=== PATIENT | male | born 1950 | race Caucasian/White ===

== ENCOUNTER 2018-08-26 12:51 | Inpatient (IN) | payer MEDICARE, SELFPAY ==
[2018-08-26] VITALS (8 sets, daily range): BP systolic 108–142; BP diastolic 76–103; PULSE 85–102; RESP 16–18; TEMP 36.6–36.7; O2SAT 92–99; BMI 22.6; BMI 26.2; BMI 26.3
--- NOTE | 2018-08-26 14:21 | RAD_ITS ---
STUDY: X-RAY CHEST REASON FOR EXAM: Male, 67 years old. Cough. Lower extremity swelling. TECHNIQUE: PA and lateral views of the chest. COMPARISON: Comparison is made with prior study dated July 11, 2011. FINDINGS: EKG electrodes are seen. Hyperinflation. Atelectasis and/or infiltrate at the left lung base with a small left pleural effusion. Mild increased markings at the right lung base and blunting of the right costophrenic angle. I suspect a mild degree of vascular congestion. There is borderline cardiomegaly. Normal mediastinum and cadence. Normal visualized pulmonary arteries. Normal visualized aortic arch and descending thoracic aorta. There are diffuse degenerative changes of the visualized thoracic spine. Normal visualized ribs, clavicles, and shoulders. There is no demonstrated abnormality of the visualized soft tissue structures of the upper abdomen. RAD/Chest PA and Lateral IMPRESSION: Findings suggestive of mild degree of bibasilar infiltrates and/or atelectasis with blunting of both cost phrenic angles superimposed on mild degree of vascular congestion. Electronically Signed: Eyad Gonzalez, at 15:05 EST , Service support ,
--- NOTE | 2018-08-26 14:21 | EKG12_ITS ---
Test Reason : EDEMA Blood Pressure : / mmHG Vent. Rate : 089 BPM Atrial Rate : 089 BPM P-R Int : 136 ms QRS Dur : 090 ms QT Int : 358 ms P-R-T Axes : 069 139 037 degrees QTc Int : 435 ms Normal sinus rhythm Possible Left atrial enlargement Right axis deviation Right ventricular hypertrophy Septal infarct , age undetermined Abnormal ECG Confirmed by LEE BROOKE, BENTLEY ([id number]), marketing editor ALEXANDRO TUTTLE ([id number]) on 08/28/2018 3:51:31 PM Referred By: Aleksander Snyder Confirmed By:BENTLEY HOWARD MD
[2018-08-26 14:52] LABS: Absolute Lymphocyte Count 0.32 X10^3/ul (0.83-4.51); Absolute Neutrophil Count 4.7 X10^3/uL (2.0-7.7); Basophil# 0.01 X10^3/uL; Basophil% 0.2 % (0-1); Eosinophil# 0.01 X10^3/uL; Eosinophils% 0.2 % (0-5); Lymphocyte # 0.32 X10^3/ul (4.0); Lymphocyte % 5.8 % (19-41); Mean Corp Hgb Conc 32.1 g/gl (32-36); Mean Corpuscular Hgb 34.9 pg (27.0-32.0); Mean Corpuscular Volume 108.8 fL (80-94); Mean Platelet Vol. 12.1 fl (6.2-12.0); Monocyte% 9.1 % (0-10); Neutrophil # 4.66 X10^3/uL (2.7-7.7); Neutrophil % 84.5 % (47-70); Platelet Count 105 K/mm3 (150-450); RBC Distribution Width CV 15.6 % (11.6-14.6); RBC Distribution Width SD 62.2 fl (35.1-43.9); Red Blood Count 5.56 M/mm3 (4.6-6.2); White Blood Count 5.5 K/mm3 (4.4-11.0)
[2018-08-26 14:59] LABS: Differential Indicated SCAN CRITERIA MET; Hematocrit 60.5 % (40-54); POSITIVE COUNT NO; POSITIVE DIFFERENTIAL YES; POSITIVE MORPHOLOGY NO
[2018-08-26 15:00] LABS: Hemoglobin 19.4 g/dl (13.0-16.5)
[2018-08-26 15:01] LABS: ALB/GLOB Ratio 0.9 RATIO (0.9-2.4); AST(SGOT) 24 U/L (15-37); Alanine Aminotransfer ALT/SGPT 28 U/L (16-61); Alkaline Phosphatase 86 U/L (45-117); Anion Gap 7 (5-15); BUN 27 mg/dL (7-18); BUN/Creat Ratio 21.3 RATIO (10-20); Calcium,Total 8.2 mg/dL (8.5-10.1); Chloride 95 mmol/L (98-107); Creatinine, Serum 1.27 mg/dL (0.70-1.30); EST Glomerular Filtration Rate 60 mL/min (>60); Est Glom Filt Rate - Afr Amer 73 mL/min (>60); Estimated Creatinine Clearance 58.66 ml/min; Globulin 3.5 g/dL (2.2-4.2); Glucose 80 mg/dL (74-106); Lipase 38 U/L (73-393); Potassium 5.1 mmol/L (3.5-5.1); Protein, Total 6.5 g/dL (6.4-8.2); Sodium Level 130 mmol/L (136-145)
[2018-08-26 15:15] LABS: BNP,B-Type NATRIURETIC PEPTIDE 1335.2 pg/mL (0-100); Differential Comment SCANNED
--- NOTE | 2018-08-26 15:15 | CT_ITS ---
STUDY: CTA CHEST REASON FOR EXAM: Male, 67 years old. Bilateral lower extremity edema. History of prostate and bladder cancer. RADIATION DOSAGE (If Supplied By Facility): CTDIvol = ( 9.8 ) mGy, DLP = ( 340 855 ) mGycm TECHNIQUE: The examination was performed with the intravenous administration of Isovue 370 75ML IV. Post-processing of the angiographic images was performed, with multiplanar reformation and 3D reconstruction. Individualized dose optimization techniques were used for this CT. COMPARISON: None. FINDINGS: Normal enhancement of the main pulmonary artery and right and left pulmonary arteries. Normal enhancement of the bilateral peripheral pulmonary arteries. There is no demonstrated pulmonary embolism. Normal thoracic aorta and visualized great vessels. There is no demonstrated aortic dissection. There are calcifications of the coronary arteries. There is borderline cardiac cardiomegaly. Normal mediastinum. Normal hilar regions. Normal visualized trachea and bronchi. Hyperinflation. Emphysematous changes worse in the upper lobes. Bilateral pleural effusions greater on the left side. Bibasilar atelectasis. Increased markings in the posterior aspect of the lingular segment of the left upper lobe suggestive of scarring. Increased markings at both lung bases suggestive of basilar scarring. Normal chest wall structures. There are degenerative changes of thoracic spine. There is a 2.2 cm x 1.4 cm cyst in the left lobe of the liver. Small amount of perihepatic and perisplenic fluid. CT/CTA Chest W/WO Contrast IMPRESSION: Bilateral pleural effusions left greater than right with underlying bibasilar atelectasis and scarring. Findings suggestive scarring in the lingular segment of the left upper lobe. Small amount of ascites. Small cyst in the left lobe of the liver. Electronically Signed: Eyad Gonzalez, at 16:01 EST , Service support ,
[2018-08-26 15:35] LABS: Lactic Acid 1.5 mmol/L (0.4-2.0)
[2018-08-26 15:36] LABS: International Normalized Ratio 1.2; Partial Thromboplast Time 25.8 Seconds (24.1-36.2); Prothrombin Time (Protime)PT. 15.1 SECONDS (11.7-14.9)
--- NOTE | 2018-08-26 16:15 | ED.VISSUMM ---
- ER Visit Summary Date of Service: 08/26/18 Chief Complaint: Swelling History of Present Illness: The patient is a 67 M who states that about a week and a half ago he began to develop swelling in the lower extremities. He states that the swelling has now gone up his legs has included his scrotum and now his abdomen feels swollen. He notes a moist cough and some shortness of breath. He states that his left face seems swollen yesterday but has improved. Patient has a urostomy due to prior bladder cancer. He notes good urinary output. He said used to smoke 2 packs a day up until 1-1/2 weeks ago when he dropped down to a few cigarettes a day because he thought perhaps the smoking was causing his swelling. He rolls his own cigarettes. He denies any hemoptysis. He denies any chest pain. No known cardiac history. Physical Examination: Afebrile slight tachycardic at 102. 88-89% on room air 93% on 2 L. Gen: Well-nourished well-developed Head: Normocephalic atraumatic Eyes: Perrl EOMI ENT: TMs clear no rhinorrhea moist mucous membranes Neck: Supple no lymphadenopathy no JVD nontender CVS: Regular rate tachycardic rhythm no murmurs normal S1-S2 Respiratory: No distress decreased breath sounds at the bases with rales. Moist cough. Abdomen: Soft nontender nondistended normal bowel sounds no masses there is small ascites Back: Nontender Extremity: Nontender 2-3+ pitting symmetric edema. Skin: Normal color no rash Neuro: alert orientated ?3 CN II-XII intact normal strength sensation reflexes gait cerebellar Psych: Normal affect normal mood Test Results: Normal sinus rhythm on the EKG at a rate of 89. Chest x-ray shows no acute findings other than a probable small pleural effusion. CTA demonstrates moderate size pleural effusions no pulmonary embolism. No obvious lung mass. No evidence of superior vena cava syndrome. Troponin is negative. Beta nitric peptide is 1333. Total protein 6.5. Hemoglobin 19.4 with a elevated MCV of about 108. Emergency Department Course and Treatment: Patient received Lasix. He will need admission into the hospital. We talked about the need for echocardiogram and further evaluation.. Impression: 1. Anasarca 2. Bilateral pleural effusions 3. Hypoxemia 4. CHF This note was generated with Dragon dictation software. It may contain incorrect words, spelling, and punctuation that were not noted in review of the chart prior to signing ED Disposition - Plan for ED Patient: Referrals: Romain Manzo III, MD [Primary Care Provider] -
--- NOTE | 2018-08-26 16:29 | HP.PCM_ITS ---
Problem List (1) CHF (congestive heart failure) Status: Acute (2) Polycythemia Status: Chronic (3) Tobacco dependence Status: Chronic (4) Bladder cancer Status: Chronic (5) History of urostomy Status: Chronic History of Present Illness Date of Admission: 08/26/18 Chief Complaint: Bilateral lower extremity swelling The patient is a 67 year old M past medical history significant for tobacco dependence, history of bladder CA status post resection and subsequent creation of a urostomy bag who presents with swelling involving both lower extremities. Patient symptoms started about 2 weeks prior to his admission he has since noticed increasing swelling involving both lower extremities. Patient in addition did notice increasing fatigue with minimal activity. He also did complain of some shortness of breath and wheezing. In view of the progressive nature of his symptoms he presented to the emergency department. PA of the chest obtained in the emergency department demonstrated Bilateral pleural effusions left greater than right with underlying bibasilar atelectasis and scarring. Findings suggestive scarring in the lingular segment of the left upper lobe. Small amount of ascites. Small cyst in the left lobe of the liver. An assessment of acute congestive heart failure made Lasix initiated and patient admitted to a monitored bed for further management Past Medical History Past Medical History (Chronic Problems): Chronic Problems Polycythemia (Chronic) Tobacco dependence (Chronic) Bladder cancer (Chronic) History of urostomy (Chronic) Allergies ciprofloxacin [From Cipro] Allergy (Verified 08/26/18 12:55) Rash Home Medications: Ambulatory Orders Medication Instructions Recorded NK 08/26/18 Smoking Status: Current every day smoker - *Family History Maternal History Items: Heart Disease Paternal History Items: Heart Disease Review of Systems Constitutional: Denies: Anorexia, Chills, Fever, Night Sweats, Weight Change HEENT: Denies: Head Aches, Sinus Congestion, Sinus Drainage Cardiovascular: Denies: Chest Pain, Orthopnea, Palpitations, Paroxysmal Noc. Dyspnea Respiratory: Reports: Cough, Shortness of Breath, Wheezing Gastrointestinal: Denies: Abdominal Pain, Hematemesis, Hematochezia, Nausea, Melena, Vomiting Genitourinary: Denies: Dysuria, Frequency, Hematuria, Urgency Musculoskeletal: Denies: Joint Pain, Joint Tenderness Skin: Denies: Rash Neurological: Denies: Focal weakness, Numbness, Tingling Psychiatric: Denies: Homicidal Ideations, Suicidal Ideations Hematologic/ Lymphatic: Denies: Easy Bruising, Easy Bleeding VTE Information - Inpt Only VTE Present on Admission: No VTE Mechan Device Prophylaxis: Knee High MIRTA Hose Patient Problems: Active and Suspected Problems CHF (congestive heart failure) (Acute) Objective: GENERAL: cooperative HEENT: Atraumatic; moist oral mucosa EYES; Anicteric, Normal Conjunctiva NECK; supple, normal thyroid, distended JVD. RESPIRATORY: Diminished to auscultation bilaterally, CARDIOVASCULAR: Regular S1 S2, no audible murmurs GI: soft, non-tender, normoactive bowel sounds, : No Renal angle tenderness; EXTREMITIES: 2+ bipedal edema, no clubbing, no cyanosis. MUSCULOSKELETAL: No Joint Tenderness; no muscle waisting NEURO: Awake; no lateralizing signs. SKIN: No Rash PSYCH; Normal affect - Physical Exam Vital Signs Temp Pulse Resp BP Pulse Ox 98 F 102 H 18 142/103 H 93 08/26/18 12:52 08/26/18 12:52 08/26/18 12:52 08/26/18 12:52 08/26/18 12:52 Oxygen Delivery Method Room Air Weight: 73.482 kg Body Mass Index (BMI) 22.6 Laboratory Tests Past 24 Hrs 08/26/18 08/26/18 08/26/18 14:20 14:20 14:20 WBC 5.5 RBC 5.56 Hgb 19.4 H* Hct 60.5 H MCV 108.8 H MCH 34.9 H MCHC 32.1 RDW 15.6 H RDW Differential 62.2 H Plt Count 105 L MPV 12.1 H Immature Gran % (Auto) 0.200 Neut % (Auto) 84.5 H Lymph % (Auto) 5.8 L [place] % (Auto) 9.1 Eos % (Auto) 0.2 Baso % (Auto) 0.2 Absolute Neuts (auto) 4.7 Absolute Lymphs (auto) 0.32 L Total Counted Not Reportable Differential Comment SCANNED PT INR APTT Sodium 130 L Potassium 5.1 Chloride 95 L Carbon Dioxide 28.0 Anion Gap 7 BUN 27 H Creatinine 1.27 Estim Creat Clear Calc 58.66 Est GFR (MDRD) Af Amer 73 Est GFR (MDRD) Non-Af 60 BUN/Creatinine Ratio 21.3 H Glucose 80 Lactic Acid Calcium 8.2 L Total Bilirubin 0.70 AST 24 ALT 28 Alkaline Phosphatase 86 Troponin I < 0.015 B-Natriuretic Peptide 1335.2 H Total Protein 6.5 Albumin 3.0 L Globulin 3.5 Albumin/Globulin Ratio 0.9 Lipase 38 L 08/26/18 08/26/18 15:01 15:20 WBC RBC Hgb Hct MCV MCH MCHC RDW RDW Differential Plt Count MPV Immature Gran % (Auto) Neut % (Auto) Lymph % (Auto) [place] % (Auto) Eos % (Auto) Baso % (Auto) Absolute Neuts (auto) Absolute Lymphs (auto) Total Counted Differential Comment PT 15.1 H INR 1.2 APTT 25.8 Sodium Potassium Chloride Carbon Dioxide Anion Gap BUN Creatinine Estim Creat Clear Calc Est GFR (MDRD) Af Amer Est GFR (MDRD) Non-Af BUN/Creatinine Ratio Glucose Lactic Acid 1.5 Calcium Total Bilirubin AST ALT Alkaline Phosphatase Troponin I B-Natriuretic Peptide Total Protein Albumin Globulin Albumin/Globulin Ratio Lipase Assessment/Plan All Active Problems CHF (congestive heart failure) (Acute) Patient is a 67-year-old gentleman presented with exertional dyspnea with bilateral lower extremity edema 1. Acute congestive heart failure (unspecified): Patient has been admitted to a monitored bed serial cardiac enzymes ordered as part of patient evaluation. Also did obtain 2D echo for EF assessment. Patient was placed on fluid restrict ion, strict input and output, low-sodium diet and daily weights monitoring 2. Bilateral pleural effusion secondary to above 3. Polycythemia do suspect polycythemia as a result of chronic tobacco use. An echo has been ordered with a view to assess patient and arterial pressures 4. History of bladder CA status post resection currently in remission patient had a subsequent urostomy created 5. Tobacco dependence counseled on cessation, offered nicotine patch for tobacco cravings 6. Frequent PVCs did request a magnesium level in addition to echo 7. Suspected COPD from prolonged tobacco use patient had some bronchospasm on admission placed on aerosol treatment 8. DVT prophylaxis SC Lovenox Code Visit Inpatient E&M: 44519 Init Hosp L3
[2018-08-26] MEDS: Furosemide 100 MG/10 ML Vial 60 MG IV (16:39)
--- NOTE | 2018-08-26 16:47 | CASEMGMT ---
RN CM Assessment Introduced role of RN CM to patient and two daughters at bedside. Patient is alert, oriented and able to participate in RN CM Assessment. Care providers, pharmacy, and demographics verified. Presentation: Admitted for CHF, CC: Swelling to bilt LE to scrotum, SOB. PCP: Dr Romain Manzo. Patient states he is in the process of changing PCP to Dr Leyva and cannot see him for 2 weeks but has not made appointment yet d/t needing to fill out paperwork. Specialists: None Preferred Pharmacy: None as patient has no Medication Benefit Coverage. States has used [facility] in past. CM did discuss Good Rx and other options CM can assist with if needing medications at DC. Both daughters state they could assist if needed. Insurance: Medicare A&B Prescription Benefit: No LNOK: Cookie Hilliard Living Arrangements: Lives alone in a mobile home with ramp. Independent with ambulation, using cane if needed, Independent with ADL's. Transportation: Patient drives sometimes. Cookie Velasquez to transport on DC. DME: Cane, Shower [employer]. no preference on DME Provider. HHC: Has had in past, cannot recall name. No preference on Agency. SNF: Denies past, no preference on Facility. DC PLAN: Home with no anticipated needs. CM to assist with any rx if prescribed at DC. [facility] Ernst
--- NOTE | 2018-08-26 17:24 | ECHOD_ITS ---
Reason For Study: CHF Procedure This was a 2D Doppler, Color Flow transthoracic echocardiogram. Exam performed portable in patient room. Left Ventricle Normal size and thickness. The estimated ejection fraction is 65 %. Stage 1 diastolic dysfunction. No regional wall motion abnormalities noted. Right Ventricle Severely dilated right ventricle. Moderately severe global right ventricular systolic dysfunction. Atria Normal left atrium. The right atrium is severely enlarged. Normal atrial septum. Mitral Valve The mitral valve is structurally normal. No prolapse or stenosis seen. Tricuspid Valve Normal tricuspid valve. Mild to moderate (1-2+) eccentric tricuspid valve insufficiency. Right ventricular systolic pressure estimated to be 65 mmHg. Severe pulmonary hypertension. Aortic Valve Normal aortic valve. Trisinus/trileaflet aortic valve. Pulmonic Valve Normal pulmonic valve. Great Vessels Normal aortic root. Normal arch. The inferior vena cava is dilated. No collapse of the inferior vena cava. Pericardium/Pleural No pericardial effusion. MMode/2D Measurements & Calculations LVIDd: 4.8 cm IVSd: 1.3 cm Ao root diam: 3.7 cm LVIDs: 2.8 cm LVPWd: 0.68 cm LA dimension: 3.0 cm RVDd: 5.4 cm FS: 42.3 % LAV(MOD-sp4): 30.7 ml LA A4 area: 14.7 cm2 RA A4 area: 32.0 cm2 Time Measurements MV dec time: 0.27 sec Doppler Measurements & Calculations MV E max alton: 59.0 cm/sec Lat Peak E' Alton: 11.9 cm/sec Med Peak E' Alton: 6.7 cm/sec MV A max alton: 96.2 cm/sec E/E' lat: 4.9 E/E' med: 8.9 MV E/A: 0.61 MV V2 max: 92.5 cm/sec MV P1/2t max alton: 69.2 cm/sec Ao V2 max: 129.4 cm/sec MV max P.4 mmHg MV P1/2t: 75.7 msec Ao max P.7 mmHg MV V2 mean: 53.4 cm/sec MV dec slope: 268.1 cm/sec2 Ao V2 mean: 81.0 cm/sec MV mean P.3 mmHg MVA(P1/2t): 2.9 cm2 Ao mean P.1 mmHg MV V2 VTI: 21.7 cm Ao V2 VTI: 20.2 cm LV V1 max: 101.8 cm/sec PA V2 max: 93.2 cm/sec TR max alton: 388.7 cm/sec LV V1 max P.2 mmHg TR max P.4 mmHg LV V1 mean P.7 mmHg LV V1 mean: 58.1 cm/sec LV V1 VTI: 19.0 cm Interpretation Summary The estimated ejection fraction is 65 %. Stage 1 diastolic dysfunction. Severely dilated right ventricle. Moderately severe global right ventricular systolic dysfunction. The right atrium is severely enlarged. Mild to moderate (1-2+) eccentric tricuspid valve insufficiency. Right ventricular systolic pressure estimated to be 65 mmHg. Severe pulmonary hypertension. Compared to echo report dated 06/29/2011, LV function has remained alvarado same, but RV is now severely enlarged with severe pulmonary HTN. Ordering Physician: Aleksander Snyder Referring Physician: Aleksander Snyder Performed By: Anthony Kaur RCS
[2018-08-26 18:38] LABS: Magnesium 1.9 mg/dL (1.6-2.6); Thyroid Stim Hormone (TSH) 2.45 uIU/mL (0.358-3.74)
[2018-08-26] MEDS: Furosemide 40 MG/4 ML Vial IV (21:34)
[2018-08-27] VITALS (19 sets, daily range): BP systolic 96–112; BP diastolic 50–73; PULSE 80–92; RESP 16–21; TEMP 36.6–36.7; O2SAT 88–96
[2018-08-27] MEDS: Furosemide 40 MG/4 ML Vial IV ×3 (06:07→21:53)
[2018-08-27] MEDS: 0.9% NaCl Peripheral Flush Adult/Peds IV ×5 (06:07→21:53)
[2018-08-27 06:54] LABS: Hematocrit 55.3 % (40-54); Mean Corp Hgb Conc 32.7 g/gl (32-36); Mean Corpuscular Hgb 35.2 pg (27.0-32.0); Mean Corpuscular Volume 107.6 fL (80-94); Mean Platelet Vol. 11.1 fl (6.2-12.0); Platelet Count 89 K/mm3 (150-450); RBC Distribution Width CV 15.5 % (11.6-14.6); RBC Distribution Width SD 60.8 fl (35.1-43.9); Red Blood Count 5.14 M/mm3 (4.6-6.2); White Blood Count 5.1 K/mm3 (4.4-11.0)
[2018-08-27 06:55] LABS: Scan Indicated on CBC? Y/N NO
[2018-08-27 06:56] LABS: Hemoglobin 18.1 g/dl (13.0-16.5)
[2018-08-27 07:21] LABS: Anion Gap 9 (5-15); BUN 27 mg/dL (7-18); BUN/Creat Ratio 27.1 RATIO (10-20); Calcium,Total 7.6 mg/dL (8.5-10.1); Chloride 98 mmol/L (98-107); EST Glomerular Filtration Rate 79 mL/min (>60); Est Glom Filt Rate - Afr Amer 96 mL/min (>60); Estimated Creatinine Clearance 76.35 ml/min; Glucose 73 mg/dL (74-106); Potassium 4.1 mmol/L (3.5-5.1); Sodium Level 140 mmol/L (136-145)
--- NOTE | 2018-08-27 08:25 | PN_ITS ---
Patient Problems: Active and Suspected Problems CHF (congestive heart failure) (Acute) Subjective: Patient is a 67-year-old gentleman presented with exertional dyspnea with bilateral lower extremity edema and assessment of acute congestive heart failure made admitted to a monitored bed started on Lasix. Has 5 L negative fluid ba camron following admission aerosol treatment initiated this a.m. in view of patient having significant wheezing Objective: GENERAL: cooperative HEENT: Atraumatic; moist oral mucosa EYES; Anicteric, Normal Conjunctiva NECK; supple, normal thyroid, distended JVD. RESPIRATORY: Diminished to auscultation bilaterally, CARDIOVASCULAR: Regular S1 S2, no audible murmurs GI: soft, non-tender, normoactive bowel sounds, : No Renal angle tenderness; EXTREMITIES: 2+ bipedal edema, no clubbing, no cyanosis. MUSCULOSKELETAL: No Joint Tenderness; no muscle waisting NEURO: Awake; no lateralizing signs. SKIN: No Rash PSYCH; Normal affect Vitals/I&O's: Vital Signs Temp Pulse Resp BP Pulse Ox 97.9 F 83 16 96/56 L 94 08/27/18 03:20 08/27/18 07:59 08/27/18 03:20 08/27/18 05:22 08/27/18 03:20 Oxygen Flow Rate (L/min) 3 Oxygen Delivery Method Nasal Cannula Weight: 78.4 kg Body Mass Index (BMI) 26.2 Intake and Output for Last 24 Hours 08/25/18 08/26/18 08/27/18 23:59 23:59 23:59 Intake Total 220 / 220 Output Total 5300 / 5300 1000 / 1000 Balance -5080 / -5080 -1000 / -1000 Laboratory Results 08/26/18 14:20: WBC 5.5, RBC 5.56, Hgb 19.4 H*, Hct 60.5 H, MCV 108.8 H, MCH 34.9 H, MCHC 32.1, RDW 15.6 H, RDW Differential 62.2 H, Plt Count 105 L, MPV 12.1 H, Immature Gran % (Auto) 0.200, Neut % (Auto) 84.5 H, Lymph % (Auto) 5.8 L , [place] % (Auto) 9.1, Eos % (Auto) 0.2, Baso % (Auto) 0.2, Absolute Neuts (auto) 4.7, Absolute Lymphs (auto) 0.32 L, Total Counted Not Reportable, Differential Comment SCANNED 08/26/18 14:20: Sodium 130 L, Potassium 5.1, Chloride 95 L, Carbon Dioxide 28.0, Anion Gap 7, BUN 27 H, Creatinine 1.27, Estim Creat Clear Calc 58.66, Est GFR (MDRD) Af Amer 73, Est GFR (MDRD) Non-Af 60, BUN/Creatinine Ratio 21.3 H, Glucose 80, Calcium 8.2 L, Total Bilirubin 0.70, AST 24, ALT 28, Alkaline Phosphatase 86, Troponin I < 0.015, Total Protein 6.5, Albumin 3.0 L, Globulin 3.5, Albumin/Globulin Ratio 0.9, Lipase 38 L 08/26/18 14:20: B-Natriuretic Peptide 1335.2 H 08/26/18 15:01: Lactic Acid 1.5 08/26/18 15:20: PT 15.1 H, INR 1.2, APTT 25.8 08/26/18 17:56: Magnesium 1.9, Troponin I < 0.015, TSH 2.45 08/26/18 21:10: Troponin I 0.018 08/27/18 06:05: Sodium 140, Potassium 4.1, Chloride 98, Carbon Dioxide 33.0 H, Anion Gap 9, BUN 27 H, Creatinine 1.00, Estim Creat Clear Calc 76.35, Est GFR (MDRD) Af Amer 96, Est GFR (MDRD) Non-Af 79, BUN/Creatinine Ratio 27.1 H, Glucose 73 L, Calcium 7.6 L 08/27/18 06:05: WBC 5.1, RBC 5.14, Hgb 18.1 H*, Hct 55.3 H, MCV 107.6 H, MCH 35.2 H, MCHC 32.7, RDW 15.5 H, RDW Differential 60.8 H, Plt Count 89 L, MPV 11.1, Diff Path Review May foll Current Medications Acetaminophen (Tylenol) 650 mg PO Q6H PRN PRN PRN Reason: Mild Pain (scale 0-3)/T>100.7 Al Hydroxide/Mg Hydroxide (Mylanta Ii) 30 ml PO Q6H PRN PRN PRN Reason: Gastric burning Bisacodyl (Dulcolax) 5 mg PO DAILY PRN PRN PRN Reason: Constipation Docusate Sodium (Colace) 200 mg PO BID PRN PRN PRN Reason: Constipation Enoxaparin Sodium (Lovenox) 40 mg SC DAILY@1000 REGLA Furosemide (Lasix) 40 mg IV Q8 REGLA Last Admin: 08/27/18 06:07 Dose: 40 mg Magnesium Hydroxide (Milk Of Magnesia) 30 ml PO DAILY PRN PRN Reason: Constipation Nicotine (Nicoderm Cq (Pbkc)) 21 mg TRANSDERM. DAILY REGLA Ondansetron HCl (Zofran) 4 mg IV Q8H PRN PRN PRN Reason: NAUSEA Oxycodone HCl (Oxyir) 5 mg PO Q4H PRN PRN PRN Reason: Moderate Pain (pain scale 4-5) Psyllium Hydrophilic Mucilloid (Metamucil) 1 packet PO DAILY PRN PRN PRN Reason: CONSTIPATION Sodium Chloride () 5 - 15 ml IV UD PRN PRN Reason: SALINE FLUSH Last Admin: 08/27/18 06:11 Dose: 5 ml Zolpidem Tartrate (Ambien (Generic)) 5 mg PO QHS PRN PRN PRN Reason: INSOMNIA Medical Necessity - Tobacco Use Smoking Status: Current every day smoker Tobacco Use: Cigarettes Assessment/Plan All Active Problems CHF (congestive heart failure) (Acute) Patient is a 67-year-old gentleman presented with exertional dyspnea with bilateral lower extremity edema 1. Acute congestive heart failure (unspecified): Patient has been admitted to a monitored bed serial cardiac enzymes ordered as part of patient evaluation. Also did obtain 2D echo for EF assessment. Patient was placed on fluid restriction, strict input and output, low-sodium diet and daily weights monitoring 2. Bilateral pleural effusion secondary to above 3. Polycythemia do suspect polycythemia as a result of chronic tobacco use. An echo has been ordered with a view to assess patient and arterial pressures 4. History of bladder CA status post resection currently in remission patient had a subsequent urostomy created 5. Tobacco dependence counseled on cessation, offered nicotine patch for toba patient account liaison cravings 6. Frequent PVCs did request a magnesium level in addition to echo 7. Suspected COPD from prolonged tobacco use patient had some bronchospasm on admission placed on aerosol treatment 8. DVT prophylaxis SC Lovenox Code Visit Inpatient E&M: 75037 Subs Hosp L3
[2018-08-27] MEDS: predniSONE 20 MG Tablet 40 MG PO (09:43)
[2018-08-27] MEDS: Enoxaparin 40 MG/0.4 ML Syringe SC (09:44)
[2018-08-27] MEDS: Ipratropium/Albuterol Sulfate 3 ML AMPUL.NEB INHALATION ×3 (11:23→19:22)
--- NOTE | 2018-08-27 14:25 | NURSING ---
pt/ot in to amb pt with o2.
[2018-08-28] VITALS (15 sets, daily range): BP systolic 100–118; BP diastolic 55–65; PULSE 76–100; RESP 16–20; TEMP 36.4–37.8; O2SAT 90–96
[2018-08-28] MEDS: Ipratropium/Albuterol Sulfate 3 ML AMPUL.NEB INHALATION ×4 (00:41→19:48)
[2018-08-28] MEDS: Furosemide 40 MG/4 ML Vial IV (05:28)
[2018-08-28] MEDS: 0.9% NaCl Peripheral Flush Adult/Peds IV (05:28)
[2018-08-28 06:01] LABS: Hematocrit 52.3 % (40-54); Hemoglobin 16.5 g/dl (13.0-16.5); Mean Corp Hgb Conc 31.5 g/gl (32-36); Mean Corpuscular Hgb 34.4 pg (27.0-32.0); Mean Platelet Vol. 11.1 fl (6.2-12.0); Platelet Count 89 K/mm3 (150-450); RBC Distribution Width CV 15.4 % (11.6-14.6); RBC Distribution Width SD 60.9 fl (35.1-43.9); White Blood Count 6.6 K/mm3 (4.4-11.0)
[2018-08-28 06:02] LABS: Scan Indicated on CBC? Y/N NO
[2018-08-28 06:08] LABS: Anion Gap 7 (5-15); BUN 31 mg/dL (7-18); BUN/Creat Ratio 23.1 RATIO (10-20); Calcium,Total 7.3 mg/dL (8.5-10.1); Chloride 95 mmol/L (98-107); Creatinine, Serum 1.34 mg/dL (0.70-1.30); EST Glomerular Filtration Rate 56 mL/min (>60); Est Glom Filt Rate - Afr Amer 68 mL/min (>60); Estimated Creatinine Clearance 56.31 ml/min; Glucose 138 mg/dL (74-106); Potassium 3.1 mmol/L (3.5-5.1); Sodium Level 143 mmol/L (136-145)
[2018-08-28] MEDS: predniSONE 20 MG Tablet 40 MG PO (08:26)
[2018-08-28] MEDS: Enoxaparin 40 MG/0.4 ML Syringe SC (08:26)
[2018-08-28 09:06] LABS: Pathologist Review Reviewed
--- NOTE | 2018-08-28 10:03 | PCM.CONS.GEN ---
Reason for Consult Date of Consultation: 08/28/18 Reason for Consultation: Acute hypoxic respiratory insufficiency/shortness of breath History of Present Illness: The patient is a 67-year-old male, with a history as outlined below, who presented to the emergency department on August 26 with shortness of breath and lower extremity edema. He claims that he has been smoking 2 packs/day since the age of 21. In light of all of his lower extremity edema, he states that he cut back to 0.5 packs/day over the last 2 weeks. The patient states that at his baseline he does not utilize supplemental oxygen. He has never been evaluated by a e merchant previously, nor has he ever undergone pulmonary function studies. He does not currently utilize any inhalers at his baseline. The patient was employed previously in a machine shop. He reports limited shortness of breath in his home environment. He does report occasional chest tightness and wheezing. He denies a previous history of venous thromboembolic disease. On presentation to the emergency department, the patient was noted to be afebrile and hemodynamically stable. Initial laboratory evaluation revealed a hemoglobin of 19 and a hematocrit of 60. Chemistry profile was notable for a sodium of 130 and chloride of 95. Lactate was within normal limits. Troponin was negative. BNP was elevated to 1335. CTA chest was obtained which revealed no evidence for pulmonary embolism. Upper lobe predominant emphysematous changes were noted along with evidence of bilateral pleural effusions and associated atelectasis. The patient received IV Lasix and was subsequently admitted to the progressive care unit for ongoing management. The patient is currently maintaining appropriate oxygen saturations on 3 L/min. The patient has been diuresed now over 9 L for his hospital stay. Surface echocardiogram obtained August 27 revealed evidence of stage I diastolic dysfunction with an ejection fraction of 65%. The patient had evidence of severe dilation of the RV with moderate to severe global RV systolic dysfunction and a right ventricular systolic pressure estimated to be 65 mmHg. Past Medical History Past Medical History (Chronic Problems): Chronic Problems Polycythemia (Chronic) Tobacco dependence (Chronic) Bladder cancer (Chronic) History of urostomy (Chronic) Allergies ciprofloxacin [From Cipro] Allergy (Verified 08/26/18 12:55) Rash Home Medications: Ambulatory Orders Medication Instructions Recorded NK 08/26/18 Smoking Status: Current every day smoker Tobacco Use: Cigarettes - *Family History Maternal History Items: Heart Disease Paternal History Items: Heart Disease Review of Systems Constitutional: Reports: Weight Change. Denies: Chills, Fever Eyes: Denies: Blurred vision, Double vision HEENT: Denies: Head Aches, Sinus Congestion, Sinus Drainage Cardiovascular: Reports: Edema. Denies: Chest Pain, Palpitations Respiratory: Reports: Shortness of Breath, Wheezing Gastrointestinal: Denies: Abdominal Pain, Nausea, Vomiting Genitourinary: Denies: Dysuria Musculoskeletal: Denies: Joint Pain, Joint Tenderness Skin: Denies: Rash, Wounds Neurological: Denies: Numbness, Tingling, Focal weakness Psychiatric: Denies: Anxiety, Depression, Homicidal Ideations, Suicidal Ideations Hematologic/ Lymphatic: Denies: Easy Bruising, Easy Bleeding, Hx of blood clot Patient Problems: Active and Suspected Problems CHF (congestive heart failure) (Acute) Objective: The patient's most recent lab work, culture data and imaging studies have all been personally reviewed. - Physical Exam General: Alert, Oriented x3, Cooperative, No apparent distress HEENT: Atraumatic, PERRLA, Normocephalic Oral: No Gingival or Mucosal Lesions/ Ulcerations Neck: Supple, No Nodes, Trachea Midline Lungs: - - Lung escamilla reveal wheezing bilaterally along with faint basilar rales. Cardiovascular: Regular rate, Regular Rhythm, Normal S1, Normal S2, No murmurs Abdomen: Bowel Sounds Present, Soft, Non Tender Extremities: - - Bilateral lower extremity pitting edema present Skin: - - Lower extremities are currently wrapped. Musculoskeletal: No Tenderness to Palpation of Joints or Extremities Lymphatic: No Cervical, Supraclavicular, or Inguinal Adenopathy Neurological: Cranial nerves II-XII grossly intact, Neuro grossly intact Psych/Mental Status: Alert and oriented to time, place, person, mood and affect Vital Signs Temp Pulse Resp BP Pulse Ox 36.4 C L 76 18 100/55 L 96 08/28/18 05:30 08/28/18 08:00 08/28/18 07:31 08/28/18 05:30 08/28/18 05:30 Oxygen Flow Rate (L/min) 3 Oxygen Delivery Method Nasal Cannula Weight: 164 lb 1 oz Body Mass Index (BMI) 26.2 Intake and Output for Last 24 Hours 08/26/18 08/27/18 08/28/18 23:59 23:59 23:59 Intake Total 220 / 220 1580 / 1580 600 / 600 Output Total 5300 / 5300 6150 / 6150 725 / 725 Balance -5080 / -5080 -4570 / -4570 -125 / -125 Laboratory Tests Past 24 Hrs 08/27/18 08/28/18 08/28/18 06:05 05:20 05:20 WBC 6.6 RBC 4.80 Hgb 16.5 Hct 52.3 MCV 109.0 H MCH 34.4 H MCHC 31.5 L RDW 15.4 H RDW Differential 60.9 H Plt Count 89 L MPV 11.1 Diff Path Review Reviewed Sodium 143 Potassium 3.1 L Chloride 95 L Carbon Dioxide 41.0 H Anion Gap 7 BUN 31 H Creatinine 1.34 H Estim Creat Clear Calc 56.31 Est GFR (MDRD) Af Amer 68 Est GFR (MDRD) Non-Af 56 L BUN/Creatinine Ratio 23.1 H Glucose 138 H Calcium 7.3 L Clinical Impression(s) from Imaging Studies Chest X-Ray 08/26/18 14:21 IMPRESSION: Findings suggestive of mild degree of bibasilar infiltrates and/or atelectasis with blunting of both cost phrenic angles superimposed on mild degree of vascular congestion. Electronically Signed: Eyad Gonzalez, at 15:05 EST , Service support , Chest CTA 08/26/18 15:15 IMPRESSION: Bilateral pleural effusions left greater than right with underlying bibasilar atelectasis and scarring. Findings suggestive scarring in the lingular segment of the left upper lobe. Small amount of ascites. Small cyst in the left lobe of the liver. Electronically Signed: Eyad Gonzalez, at 16:01 EST , Service support , Assessment/Plan All Active Problems CHF (congestive heart failure) (Acute) RECOMMENDATIONS: 1. Continue attempts at volume optimization as tolerated by renal function. 2. Wean supplemental oxygen to maintain saturations at or above 90%. 3. Perform walking oximetry study prior to consideration for discharge from the hospital. I do anticipate a home-going oxygen need. 4. Perform overnight pulse oximetry study tonight. 5. Will start secondary PH workup: VIJAY, ANCA and VQ scan have been ordered. 6. The patient will need to follow-up in the pulmonary medicine clinic within 2 weeks of his discharge from the hospital. IMPRESSIONS: 1. Acute hypoxic respiratory insufficiency secondary to decompensated right-sided heart failure/cor pulmonale The patient presented to the hospital with decompensated right-sided heart failure and evidence of newly discovered pulmonary hypertension. He has responded appropriately to IV diuretic therapy. Recommend continued volume optimization as tolerated by renal function. I strongly suspect that the patient's pulmonary hypertension is likely related to chronic hypoxemia and undiagnosed/untreated COPD (Group III). Given that his CTA revealed no evidence for acute PE, will obtain VQ scan to evaluate for chronic thromboembolic disease. LFTs are within normal limits. Orders for VIJAY and ANCA were also placed. An overnight oximetry study will also be performed. Once the patient is euvolemic, perform walking oximetry study to evaluate for home-going supplemental oxygen need. The patient undoubtedly needs to follow-up in the pulmonary medicine clinic so that baseline pulmonary function studies can be obtained. 2. Newly discovered pulmonary hypertension Most likely the consequence of chronic hypoxemia and underlying lung disease. However, will evaluate for the presence of chronic thromboembolic disease, autoimmune disorders and vasculitides. The patient will need to have pulmonary function studies completed once he is discharged from the hospital. He also needs to be assessed for home-going supplemental oxygen need. 3. Acute kidney injury Likely secondary to overdiuresis in his first 24 hours. Agree with de-escalation of his Lasix regimen. 4. Hypokalemia Electrolyte repletion as indicated. Recheck levels in the morning. 5. Long-standing tobacco dependency Agree with continuing nicotine replacement therapy while admitted to the hospital. I personally spoke to the patient regarding the deleterious effects of ongoing tobacco use, including modalities which could be utilized to achieve a smoke free lifestyle. This note was generated with [employer] software. It may contain incorrect words, spelling, and punctuation that were not noted in checking the note before signing. Code Visit Inpatient E&M: 15607 Init Hosp L3
--- NOTE | 2018-08-28 10:05 | PCM.PN.HOSP ---
Patient Problems: Active and Suspected Problems CHF (congestive heart failure) (Acute) Subjective: Patient seen reports improvement in his shortness of breath. His creatinine did bump from 1 to 1.3.4. His hemoglobin level down to 7.5. Echo demonstrated stage I diastolic dysfunction with severely dilated right ventricle and right ventricular systolic pressure of 65 mmHg consistent with severe pulmonary hypertension. Consultation subsequently placed to Dr. Mcneil with pulmonary medicine. Intake and Output for Last 24 Hours 08/26/18 08/27/18 08/28/18 23:59 23:59 23:59 Intake Total 220 / 220 1580 / 1580 600 / 600 Output Total 5300 / 5300 6150 / 6150 725 / 725 Balance -5080 / -5080 -4570 / -4570 -125 / -125 Objective: GENERAL: cooperative HEENT: Atraumatic; moist oral mucosa EYES; Anicteric, Normal Conjunctiva NECK; supple, normal thyroid, distended JVD. RESPIRATORY: Diminished to auscultation bilaterally, CARDIOVASCULAR: Regular S1 S2, no audible murmurs GI: soft, non-tender, normoactive bowel sounds, : No Renal angle tenderness; EXTREMITIES: trace pedal edema, MUSCULOSKELETAL: No Joint Tenderness; NEURO: Awake; no lateralizing signs. SKIN: No Rash PSYCH; Normal affect Vitals/I&O's: Vital Signs Temp Pulse Resp BP Pulse Ox 97.6 F L 76 18 100/55 L 96 08/28/18 05:30 08/28/18 08:00 08/28/18 07:31 08/28/18 05:30 08/28/18 05:30 Oxygen Flow Rate (L/min) 3 Oxygen Delivery Method Nasal Cannula Weight: 74.417 kg Body Mass Index (BMI) 26.2 Intake and Output for Last 24 Hours 08/26/18 08/27/18 08/28/18 23:59 23:59 23:59 Intake Total 220 / 220 1580 / 1580 600 / 600 Output Total 5300 / 5300 6150 / 6150 725 / 725 Balance -5080 / -5080 -4570 / -4570 -125 / -125 Laboratory Results 08/27/18 06:05: Diff Path Review Reviewed 08/28/18 05:20: Sodium 143, Potassium 3.1 L, Chloride 95 L, Carbon Dioxide 41.0 H, Anion Gap 7, BUN 31 H, Creatinine 1.34 H, Estim Creat Clear Calc 56.31, Est GFR (MDRD) Af Amer 68, Est GFR (MDRD) Non-Af 56 L, BUN/Creatinine Ratio 23.1 H, Glucose 138 H, Calcium 7.3 L 08/28/18 05:20: WBC 6.6, RBC 4.80, Hgb 16.5, Hct 52.3, MCV 109.0 H, MCH 34.4 H, MCHC 31.5 L, RDW 15.4 H, RDW Differential 60.9 H, Plt Count 89 L, MPV 11.1 Current Medications Acetaminophen (Tylenol) 650 mg PO Q6H PRN PRN PRN Reason: Mild Pain (scale 0-3)/T>100.7 Al Hydroxide/Mg Hydroxide (Mylanta Ii) 30 ml PO Q6H PRN PRN PRN Reason: Gastric burning Albuterol Sulfate (Ventolin Aerosols) 2.5 mg INHALATION Q2H PRN PRN PRN Reason: SHORTNESS OF BREATH Albuterol/Ipratropium (Duoneb) 3 ml INHALATION Q6H.RT [facility] Last Admin: 08/28/18 07:31 Dose: 3 ml Bisacodyl (Dulcolax) 5 mg PO DAILY PRN PRN PRN Reason: Constipation Docusate Sodium (Colace) 200 mg PO BID PRN PRN PRN Reason: Constipation Enoxaparin Sodium (Lovenox) 40 mg SC DAILY@1000 [facility] Last Admin: 08/28/18 08:26 Dose: 40 mg Furosemide (Lasix) 40 mg PO DAILY [facility] Magnesium Hydroxide (Milk Of Magnesia) 30 ml PO DAILY PRN PRN Reason: Constipation Nicotine (Nicoderm Cq (Pbkc)) 21 mg TRANSDERM. DAILY [facility] Last Admin: 08/28/18 08:26 Dose: 21 mg Ondansetron HCl (Zofran) 4 mg IV Q8H PRN PRN PRN Reason: NAUSEA Oxycodone HCl (Oxyir) 5 mg PO Q4H PRN PRN PRN Reason: Moderate Pain (pain scale 4-5) Potassium Ch[facility] ([facility]) [facility] Pred[facility]one () 40 mg PO DAILY@0800 [facility] Last Admin: 08/28/18 08:26 Dose: 40 mg Psyllium Hydrophilic Mucilloid (Metamucil) 1 packet PO DAILY PRN PRN PRN Reason: CONSTIPATION Sodium Chloride () 5 - 15 ml IV UD PRN PRN Reason: SALINE FLUSH Last Admin: 08/28/18 05:28 Dose: 10 ml Zolpidem Tartrate (Ambien (Generic)) 5 mg PO QHS PRN PRN PRN Reason: INSOMNIA Medical Necessity - Tobacco Use Smoking Status: Current every day smoker Tobacco Use: Cigarettes Assessment/Plan All Active Problems CHF (congestive heart failure) (Acute) Patient is a 67-year-old gentleman presented with exertional dyspnea with bilateral lower extremity edema 1. Acute diastolic (heart failure with preserved ejection fraction) congestive heart failure: Patient has been admitted to a monitored bed serial cardiac enzymes ordered as part of patient evaluation. Also did obtain 2D echo for EF assessment. Patient was placed on fluid restriction, strict input and output, low-sodium diet and daily weights monitoring. His creatinine did bump from 1 to 1.3.4. His hemoglobin level down to 16.5 as of 08/28/2018. Lasix dose subsequently adjusted. Echo demonstrated stage I diastolic dysfunction with severely dilated right ventricle and right ventricular systolic pressure of 65 mmHg consistent with severe pulmonary hypertension. 2. Bilateral pleural effusion secondary to above 3. Severe pulmonary hypertension with RVSP of 65 mmHg attributed to suspected chronic lung disease from years of smoking. Consult placed to pulmonary medicine Dr. Mcneil 4. Polycythemia do suspect polycythemia as a result of chronic tobacco use. An echo has been ordered with a view to assess patient and arterial pressures. Echo demonstrated stage I diastolic dysfunction with severely dilated right ventricle and right ventricular systolic pressure of 65 mmHg consistent with severe pulmonary hypertension. 5. History of bladder CA status post resection currently in remission patient had a subsequent urostomy created 6. Tobacco dependence counseled on cessation, offered nicotine patch for tobacco cravings 7. Frequent PVCs did request a magnesium level in addition to echo 8. Suspected COPD from prolonged tobacco use patient had some bronchospasm on admission placed on aerosol treatment 9. DVT prophylaxis SC Lovenox Code Visit Inpatient E&M: 32644 [facility] Hosp L3
--- NOTE | 2018-08-28 10:09 | PN_ITS ---
Patient Problems: Active and Suspected Problems CHF (congestive heart failure) (Acute) Subjective: Patient seen reports improvement in his shortness of breath. His creatinine did bump from 1 to 1.3.4. His hemoglobin level down to 7.5. Echo demonstrated stage I diastolic dysfunction with severely dilated right ventricle and right ventricular systolic pressure of 65 mmHg consistent with severe pulmonary hypertension. Consultation subsequently placed to Dr. Mcneil with pulmonary medicine. Intake and Output for Last 24 Hours 08/26/18 08/27/18 08/28/18 23:59 23:59 23:59 Intake Total 220 / 220 1580 / 1580 600 / 600 Output Total 5300 / 5300 6150 / 6150 725 / 725 Balance -5080 / -5080 -4570 / -4570 -125 / -125 Objective: GENERAL: cooperative HEENT: Atraumatic; moist oral mucosa EYES; Anicteric, Normal Conjunctiva NECK; supple, normal thyroid, distended JVD. RESPIRATORY: Diminished to auscultation bilaterally, CARDIOVASCULAR: Regular S1 S2, no audible murmurs GI: soft, non-tender, normoactive bowel sounds, : No Renal angle tenderness; EXTREMITIES: trace pedal edema, MUSCULOSKELETAL: No Joint Tenderness; NEURO: Awake; no lateralizing signs. SKIN: No Rash PSYCH; Normal affect Vitals/I&O's: Vital Signs Temp Pulse Resp BP Pulse Ox 97.6 F L 76 18 100/55 L 96 08/28/18 05:30 08/28/18 08:00 08/28/18 07:31 08/28/18 05:30 08/28/18 05:30 Oxygen Flow Rate (L/min) 3 Oxygen Delivery Method Nasal Cannula Weight: 74.417 kg Body Mass Index (BMI) 26.2 Intake and Output for Last 24 Hours 08/26/18 08/27/18 08/28/18 23:59 23:59 23:59 Intake Total 220 / 220 1580 / 1580 600 / 600 Output Total 5300 / 5300 6150 / 6150 725 / 725 Balance -5080 / -5080 -4570 / -4570 -125 / -125 Laboratory Results 08/27/18 06:05: Diff Path Review Reviewed 08/28/18 05:20: Sodium 143, Potassium 3.1 L, Chloride 95 L, Carbon Dioxide 41.0 H, Anion Gap 7, BUN 31 H, Creatinine 1.34 H, Estim Creat Clear Calc 56.31, Est GFR (MDRD) Af Amer 68, Est GFR (MDRD) Non-Af 56 L, BUN/Creatinine Ratio 23.1 H, Glucose 138 H, Calcium 7.3 L 08/28/18 05:20: WBC 6.6, RBC 4.80, Hgb 16.5, Hct 52.3, MCV 109.0 H, MCH 34.4 H, MCHC 31.5 L, RDW 15.4 H, RDW Differential 60.9 H, Plt Count 89 L, MPV 11.1 Current Medications Acetaminophen (Tylenol) 650 mg PO Q6H PRN PRN PRN Reason: Mild Pain (scale 0-3)/T>100.7 Al Hydroxide/Mg Hydroxide (Mylanta Ii) 30 ml PO Q6H PRN PRN PRN Reason: Gastric burning Albuterol Sulfate (Ventolin Aerosols) 2.5 mg INHALATION Q2H PRN PRN PRN Reason: SHORTNESS OF BREATH Albuterol/Ipratropium (Duoneb) 3 ml INHALATION Q6H.RT [facility] Last Admin: 08/28/18 07:31 Dose: 3 ml Bisacodyl (Dulcolax) 5 mg PO DAILY PRN PRN PRN Reason: Constipation Docusate Sodium (Colace) 200 mg PO BID PRN PRN PRN Reason: Constipation Enoxaparin Sodium (Lovenox) 40 mg SC DAILY@1000 [facility] Last Admin: 08/28/18 08:26 Dose: 40 mg Furosemide (Lasix) 40 mg PO DAILY [facility] Magnesium Hydroxide (Milk Of Magnesia) 30 ml PO DAILY PRN PRN Reason: Constipation Nicotine (Nicoderm Cq (Pbkc)) 21 mg TRANSDERM. DAILY [facility] Last Admin: 08/28/18 08:26 Dose: 21 mg Ondansetron HCl (Zofran) 4 mg IV Q8H PRN PRN PRN Reason: NAUSEA Oxycodone HCl (Oxyir) 5 mg PO Q4H PRN PRN PRN Reason: Moderate Pain (pain scale 4-5) Potassium [facility] ([facility] () 40 mg PO DAILY@0800 [facility] Last Admin: 08/28/18 08:26 Dose: 40 mg Psyllium Hydrophilic Mucilloid (Metamucil) 1 packet PO DAILY PRN PRN PRN Reason: CONSTIPATION Sodium Chloride () 5 - 15 ml IV UD PRN PRN Reason: SALINE FLUSH Last Admin: 08/28/18 05:28 Dose: 10 ml Zolpidem Tartrate (Ambien (Generic)) 5 mg PO QHS PRN PRN PRN Reason: INSOMNIA Medical Necessity - Tobacco Use Smoking Status: Current every day smoker Tobacco Use: Cigarettes Assessment/Plan All Active Problems CHF (congestive heart failure) (Acute) Patient is a 67-year-old gentleman presented with exertional dyspnea with bilateral lower extremity edema 1. Acute diastolic (heart failure with preserved ejection fraction) congestive heart failure: Patient has been admitted to a monitored bed serial cardiac enzymes ordered as part of patient evaluation. Also did obtain 2D echo for EF assessment. Patient was placed on fluid restriction, strict input and output, low-sodium diet and daily weights monitoring. His creatinine did bump from 1 to 1.3.4. His hemoglobin level down to 16.5 as of 08/28/2018. Lasix dose subsequently adjusted. Echo demonstrated stage I diastolic dysfunction with severely dilated right ventricle and right ventricular systolic pressure of 65 mmHg consistent with severe pulmonary hypertension. 2. Bilateral pleural effusion secondary to above 3. Severe pulmonary hypertension with RVSP of 65 mmHg attributed to suspected chronic lung disease from years of smoking. Consult placed to pulmonary medicine Dr. Mcneil 4. Polycythemia do suspect polycythemia as a result of chronic tobacco use. An echo has been ordered with a view to assess patient and arterial pressures. Echo demonstrated stage I diastolic dysfunction with severely dilated right ventricle and right ventricular systolic pressure of 65 mmHg consistent with severe pulmonary hypertension. 5. History of bladder CA status post resection currently in remission patient had a subsequent urostomy created 6. Tobacco dependence counseled on cessation, offered nicotine patch for tobacco cravings 7. Frequent PVCs did request a magnesium level in addition to echo 8. Suspected COPD from prolonged tobacco use patient had some bronchospasm on admission placed on aerosol treatment 9. DVT prophylaxis SC Lovenox Code Visit Inpatient E&M: 32864 [facility] Hosp L3
--- NOTE | 2018-08-28 10:09 | CON.PCM_ITS ---
Reason for Consult Date of Consultation: 08/28/18 Reason for Consultation: Acute hypoxic respiratory insufficiency/shortness of breath History of Present Illness: The patient is a 67-year-old male, with a history as outlined below, who presented to the emergency department on August 26 with shortness of breath and lower extremity edema. He claims that he has been smoking 2 packs/day since the age of 21. In light of all of his lower extremity edema, he states that he cut back to 0.5 packs/day over the last 2 weeks. The patient states that at his baseline he does not utilize supplemental oxygen. He has never been evaluated by a drug safety physician previously, nor has he ever undergone pulmonary function studies. He does not currently utilize any inhalers at his baseline. The patient was employed previously in a machine shop. He reports limited shortness of breath in his home environment. He does report occasional chest tightness and wheezing. He denies a previous history of venous thromboembolic disease. On presentation to the emergency department, the patient was noted to be afebrile and hemodynamically stable. Initial laboratory evaluation revealed a hemoglobin of 19 and a hematocrit of 60. Chemistry profile was notable for a sodium of 130 and chloride of 95. Lactate was within normal limits. Troponin was negative. BNP was elevated to 1335. CTA chest was obtained which revealed no evidence for pulmonary embolism. Upper lobe predominant emphysematous changes were noted along with evidence of bilateral pleural effusions and associated atelectasis. The patient received IV Lasix and was subsequently admitted to the progressive care unit for ongoing management. The patient is currently maintaining appropriate oxygen saturations on 3 L/min. The patient has been diuresed now over 9 L for his hospital stay. Surface echocardiogram obtained August 27 revealed evidence of stage I diastolic dysfunction with an ejection fraction of 65%. The patient had evidence of severe dilation of the RV with moderate to severe global RV systolic dysfunction and a right ventricular systolic pressure estimated to be 65 mmHg. Past Medical History Past Medical History (Chronic Problems): Chronic Problems Polycythemia (Chronic) Tobacco dependence (Chronic) Bladder cancer (Chronic) History of urostomy (Chronic) Allergies ciprofloxacin [From Cipro] Allergy (Verified 08/26/18 12:55) Rash Home Medications: Ambulatory Orders Medication Instructions Recorded NK 08/26/18 Smoking Status: Current every day smoker Tobacco Use: Cigarettes - *Family History Maternal History Items: Heart Disease Paternal History Items: Heart Disease Review of Systems Constitutional: Reports: Weight Change. Denies: Chills, Fever Eyes: Denies: Blurred vision, Double vision HEENT: Denies: Head Aches, Sinus Congestion, Sinus Drainage Cardiovascular: Reports: Edema. Denies: Chest Pain, Palpitations Respiratory: Reports: Shortness of Breath, Wheezing Gastrointestinal: Denies: Abdominal Pain, Nausea, Vomiting Genitourinary: Denies: Dysuria Musculoskeletal: Denies: Joint Pain, Joint Tenderness Skin: Denies: Rash, Wounds Neurological: Denies: Numbness, Tingling, Focal weakness Psychiatric: Denies: Anxiety, Depression, Homicidal Ideations, Suicidal Ideations Hematologic/ Lymphatic: Denies: Easy Bruising, Easy Bleeding, Hx of blood clot Patient Problems: Active and Suspected Problems CHF (congestive heart failure) (Acute) Objective: The patient's most recent lab work, culture data and imaging studies have all been personally reviewed. - Physical Exam General: Alert, Oriented x3, Cooperative, No apparent distress HEENT: Atraumatic, PERRLA, Normocephalic Oral: No Gingival or Mucosal Lesions/ Ulcerations Neck: Supple, No Nodes, Trachea Midline Lungs: - - Lung escamilla reveal wheezing bilaterally along with faint basilar rales. Cardiovascular: Regular rate, Regular Rhythm, Normal S1, Normal S2, No murmurs Abdomen: Bowel Sounds Present, Soft, Non Tender Extremities: - - Bilateral lower extremity pitting edema present Skin: - - Lower extremities are currently wrapped. Musculoskeletal: No Tenderness to Palpation of Joints or Extremities Lymphatic: No Cervical, Supraclavicular, or Inguinal Adenopathy Neurological: Cranial nerves II-XII grossly intact, Neuro grossly intact Psych/Mental Status: Alert and oriented to time, place, person, mood and affect Vital Signs Temp Pulse Resp BP Pulse Ox 36.4 C L 76 18 100/55 L 96 08/28/18 05:30 08/28/18 08:00 08/28/18 07:31 08/28/18 05:30 08/28/18 05:30 Oxygen Flow Rate (L/min) 3 Oxygen Delivery Method Nasal Cannula Weight: 164 lb 1 oz Body Mass Index (BMI) 26.2 Intake and Output for Last 24 Hours 08/26/18 08/27/18 08/28/18 23:59 23:59 23:59 Intake Total 220 / 220 1580 / 1580 600 / 600 Output Total 5300 / 5300 6150 / 6150 725 / 725 Balance -5080 / -5080 -4570 / -4570 -125 / -125 Laboratory Tests Past 24 Hrs 08/27/18 08/28/18 08/28/18 06:05 05:20 05:20 WBC 6.6 RBC 4.80 Hgb 16.5 Hct 52.3 MCV 109.0 H MCH 34.4 H MCHC 31.5 L RDW 15.4 H RDW Differential 60.9 H Plt Count 89 L MPV 11.1 Diff Path Review Reviewed Sodium 143 Potassium 3.1 L Chloride 95 L Carbon Dioxide 41.0 H Anion Gap 7 BUN 31 H Creatinine 1.34 H Estim Creat Clear Calc 56.31 Est GFR (MDRD) Af Amer 68 Est GFR (MDRD) Non-Af 56 L BUN/Creatinine Ratio 23.1 H Glucose 138 H Calcium 7.3 L Clinical Impression(s) from Imaging Studies Chest X-Ray 08/26/18 14:21 IMPRESSION: Findings suggestive of mild degree of bibasilar infiltrates and/or atelectasis with blunting of both cost phrenic angles superimposed on mild degree of vascular congestion. Electronically Signed: Eyad Gonzalez, at 15:05 EST , Service support , Chest CTA 08/26/18 15:15 IMPRESSION: Bilateral pleural effusions left greater than right with underlying bibasilar atelectasis and scarring. Findings suggestive scarring in the lingular segment of the left upper lobe. Small amount of ascites. Small cyst in the left lobe of the liver. Electronically Signed: Eyad Gonzalez, at 16:01 EST , Service support , Assessment/Plan All Active Problems CHF (congestive heart failure) (Acute) RECOMMENDATIONS: 1. Continue attempts at volume optimization as tolerated by renal function. 2. Wean supplemental oxygen to maintain saturations at or above 90%. 3. Perform walking oximetry study prior to consideration for discharge from the hospital. I do anticipate a home-going oxygen need. 4. Perform overnight pulse oximetry study tonight. 5. Will start secondary PH workup: VIJAY, ANCA and VQ scan have been ordered. 6. The patient will need to follow-up in the pulmonary medicine clinic within 2 weeks of his discharge from the hospital. IMPRESSIONS: 1. Acute hypoxic respiratory insufficiency secondary to decompensated right- sided heart failure/cor pulmonale The patient presented to the hospital with decompensated right-sided heart failure and evidence of newly discovered pulmonary hypertension. He has responded appropriately to IV diuretic therapy. Recommend continued volume optimization as tolerated by renal function. I strongly suspect that the patient's pulmonary hypertension is likely related to chronic hypoxemia and undiagnosed/untreated COPD (Group III). Given that his CTA revealed no evidence for acute PE, will obtain VQ scan to evaluate for chronic thromboembolic disease. LFTs are within normal limits. Orders for VIJAY and ANCA were also placed. An overnight oximetry study will also be performed. Once the patient is euvolemic, perform walking oximetry study to evaluate for home-going supplemental oxygen need. The patient undoubtedly needs to follow-up in the pulmonary medicine clinic so that baseline pulmonary function studies can be obtained. 2. Newly discovered pulmonary hypertension Most likely the consequence of chronic hypoxemia and underlying lung disease. However, will evaluate for the presence of chronic thromboembolic disease, autoimmune disorders and vasculitides. The patient will need to have pulmonary function studies completed once he is discharged from the hospital. He also needs to be assessed for home-going supplemental oxygen need. 3. Acute kidney injury Likely secondary to overdiuresis in his first 24 hours. Agree with de- escalation of his Lasix regimen. 4. Hypokalemia Electrolyte repletion as indicated. Recheck levels in the morning. 5. Long-standing tobacco dependency Agree with continuing nicotine replacement therapy while admitted to the hospital. I personally spoke to the patient regarding the deleterious effects of ongoing tobacco use, including modalities which could be utilized to achieve a smoke free lifestyle. This note was generated with [employer] software. It may contain incorrect words, spelling, and punctuation that were not noted in checking the note before signing. Code Visit Inpatient E&M: 88123 Init Hosp L3
--- NOTE | 2018-08-28 10:12 | NM_ITS ---
CLINICAL: 67-year-old male with reported history of shortness of breath. VENTILATION-PERFUSION LUNG SCINTIGRAPHY COMPARISON: Plain film chest radiograph 08/28/2018, CTA of the chest report 08/26/2018 FINDINGS: The patient was administered 46.1 mCi 99m Tc DTPA aerosol. The aerosol ventilation study demonstrates heterogeneous ventilation in the bilateral lung escamilla without corresponding radiographic changes visualized on review of plain film chest x-ray dated 08/28/2018. Central clumping of the aerosol is identified in the bilateral hemithorax. Following the intravenous administration of 5.5 mCi of 99m Tc MAA, the pulmonary perfusion study reveals matching non-uniform perfusion in the right and left lungs of less significant severity than the previously defined ventilation pattern. No moderate subsegmental or large segmental ventilation-perfusion mismatches are noted. NM/Lung Scan Vent/Perf IMPRESSION: 1. VERY LOW PROBABILITY FOR PULMONARY EMBOLUS (<10%) 99m Tc DTPA aerosol ventilation / 99m Tc MAA pulmonary perfusion imaging examination, according to PIOPED II interpretive criteria with regard given to the presence of > 2 ventilation-perfusion matches without corresponding radiographic changes. (Sotsman et al, Radiology 246: 941, 2008 Sopayton et al, J Nucl Med 49: 1741, 2008). 2. Central clumping of the aerosol may be secondary to obstructive airway mechanics and or clinical tachypnea. Electronically Signed: Serjio Sewell DO at 13:16 EST Tel , Service support ,
--- NOTE | 2018-08-28 10:25 | RAD_ITS ---
STUDY: X-RAY CHEST REASON FOR EXAM: Male, 67 years old. CHF. TECHNIQUE: AP and lateral views of the chest. COMPARISON: Comparison is made with prior study dated August 26, 2018. FINDINGS: EKG electrodes are seen. Hyperinflation. Mild degree of vascular congestion with bibasilar atelectasis and small effusions worse at the left lung base. Since prior study, there has been mild improvement of the aeration at the left lung base. Normal size heart. Normal mediastinum and cadence. Normal visualized pulmonary arteries. Normal visualized aortic arch and descending thoracic aorta. There are degenerative changes of the visualized thoracic spine. Normal visualized ribs, clavicles, and shoulders. There is no demonstrated abnormality of the visualized soft tissue structures of the upper abdomen. RAD/Chest PA and Lateral IMPRESSION: Slight improved aeration at the left lung base. Electronically Signed: Eyad Gonzalez, at 14:49 EST , Service support ,
[2018-08-28] MEDS: Furosemide 40 MG Tablet PO (14:37)
[2018-08-29] VITALS (12 sets, daily range): BP systolic 110–145; BP diastolic 61–77; PULSE 80–92; RESP 17–18; TEMP 36.6–37.3; O2SAT 85–94
[2018-08-29] MEDS: Ipratropium/Albuterol Sulfate 3 ML AMPUL.NEB INHALATION ×3 (00:24→13:38)
--- NOTE | 2018-08-29 00:27 | CPS ---
o2 removed at 2205 ...o2 reapplied at 2216 spo2 dropped to 78% on RA
--- NOTE | 2018-08-29 07:24 | PCM.PROGNOTE ---
Patient Problems: Active and Suspected Problems CHF (congestive heart failure) (Acute) Subjective: The patient was seen and examined at the bedside this morning. Events from the last 24 hours have been reviewed. The patient is currently afebrile, hemodynamically stable and maintaining appropriate oxygen saturations on 4 L/min via nasal cannula. The patient was documented to be overall net -3.4 L yesterday. He is now overall net -13.4 L for the admission. While the patient does report subjective improvement in his breathing quality this morning, he continues to have lower extremity edema and a 4 L/min resting supplemental oxygen requirement. Objective: The patient's most recent lab work, culture data and imaging studies have all been personally reviewed. CTA chest revealed no evidence for pulmonary embolism. Upper lobe predominant emphysematous changes were noted along with evidence of bilateral pleural effusions and associated atelectasis. Surface echocardiogram obtained August 27 revealed evidence of stage I diastolic dysfunction with an ejection fraction of 65%. The patient had evidence of severe dilation of the RV with moderate to severe global RV systolic dysfunction and a right ventricular systolic pressure estimated to be 65 mmHg. Sputum Gram stain appears to be normal respiratory jay. Autoimmune and vasculitis panel is currently in process. VQ scan revealed low probability for PE. - Physical Exam General: Alert, Oriented x3, Cooperative, No apparent distress HEENT: Atraumatic, PERRLA, Normocephalic Oral: No Gingival or Mucosal Lesions/ Ulcerations Neck: Supple, No Nodes, Trachea Midline Lungs: No rhonchi, No rales, Diminished, Wheezes Cardiovascular: Regular rate, Regular Rhythm, Normal S1, Normal S2, No murmurs Abdomen: Bowel Sounds Present, Soft, Non Tender Extremities: No clubbing, No cyanosis, - - Continued bilateral lower extremity pitting edema Skin: No breakdown Musculoskeletal: No Tenderness to Palpation of Joints or Extremities Lymphatic: No Cervical, Supraclavicular, or Inguinal Adenopathy Neurological: Cranial nerves II-XII grossly intact, Neuro grossly intact Psych/Mental Status: Alert and oriented to time, place, person, mood and affect Vital Signs Temp Pulse Resp BP Pulse Ox 37.3 C 89 18 110/61 94 08/29/18 04:20 08/29/18 04:20 08/29/18 04:20 08/29/18 04:20 08/29/18 04:20 Oxygen Flow Rate (L/min) 4 Oxygen Delivery Method Nasal Cannula Weight: 163 lb 5.8 oz Body Mass Index (BMI) 26.2 Intake and Output for Last 24 Hours 08/27/18 08/28/18 08/29/18 23:59 23:59 23:59 Intake Total 1580 / 1580 1309 / 1309 Output Total 6150 / 6150 4750 / 4750 325 / 325 Balance -4570 / -4570 -3441 / -3441 -325 / -325 Microbiology Past 72 Hours 08/27/18 13:15 Gram Stain - Final Sputum, Expectorated/Coughed Respiratory Culture - Preliminary Appears to be normal respiratory jay. Further studies to follow. Laboratory Tests Past 24 Hrs 08/27/18 08/28/18 08/28/18 06:05 12:15 12:15 Diff Path Review Reviewed VIJAY Screen Pending c-ANCA Antibody Pending p-ANCA Antibody Pending MADISYN-1 Antibody Pending SS-A/Ro IgG Antibody Pending SS-B/La IgG Antibody Pending Sm (Lopez) Antibody Pending [employer] Antibody Pending Scl-70 Scleroderma Ab Pending Double Strand DNA Ab Pending Centromere B Antibody Pending Clinical Impression(s) from Imaging Studies Chest X-Ray 08/26/18 14:21 IMPRESSION: Findings suggestive of mild degree of bibasilar infiltrates and/or atelectasis with blunting of both cost phrenic angles superimposed on mild degree of vascular congestion. Electronically Signed: Eyad Gonzalez, at 15:05 EST , Service support , Chest CTA 08/26/18 15:15 IMPRESSION: Bilateral pleural effusions left greater than right with underlying bibasilar atelectasis and scarring. Findings suggestive scarring in the lingular segment of the left upper lobe. Small amount of ascites. Small cyst in the left lobe of the liver. Electronically Signed: Eyad Gonzalez, at 16:01 EST , Service support , Lung Scan-VQ NM 08/28/18 10:12 IMPRESSION: 1. VERY LOW PROBABILITY FOR PULMONARY EMBOLUS (<10%) 99m Tc DTPA aerosol ventilation / 99m Tc MAA pulmonary perfusion imaging examination, according to PIOPED II interpretive criteria with regard given to the presence of > 2 ventilation-perfusion matches without corresponding radiographic changes. (Sopayton et al, Radiology 246: 941, 2008 Tesfaye et al, J Nucl Med 49: 1741, 2008). 2. Central clumping of the aerosol may be secondary to obstructive airway mechanics and or clinical tachypnea. Electronically Signed: Serjio Sewell, DO at 13:16 EST Tel , Service support , Chest X-Ray 08/28/18 10:25 IMPRESSION: Slight improved aeration at the left lung base. Electronically Signed: Eyad Gonzalez, at 14:49 EST , Service support , Medical Necessity - Tobacco Use Smoking Status: Current every day smoker Tobacco Use: Cigarettes Assessment/Plan All Active Problems CHF (congestive heart failure) (Acute) RECOMMENDATIONS: 1. Continue attempts at volume optimization as tolerated by renal function. 2. Wean supplemental oxygen to maintain saturations at or above 90%. 3. Perform walking oximetry study prior to consideration for discharge from the hospital. I do anticipate a home-going oxygen need. 4. The patient will need to follow-up in the pulmonary medicine clinic within 2 weeks of his discharge from the hospital. IMPRESSIONS: 1. Acute hypoxic respiratory insufficiency secondary to decompensated right-sided heart failure/cor pulmonale The patient presented to the hospital with decompensated right-sided heart failure and evidence of newly discovered pulmonary hypertension. He has responded appropriately to IV diuretic therapy. Recommend continued volume optimization as tolerated by renal function. I strongly suspect that the patient's pulmonary hypertension is likely related to chronic hypoxemia and undiagnosed/untreated COPD (Group III). Given that his CTA revealed no evidence for acute PE, a VQ scan was obtained to evaluate for the presence of chronic thromboembolic disease. The VQ scan was negative. LFTs are within normal limits. Orders for VIJAY and ANCA are currently pending. Overnight oximetry did suggest that the patient will require supplemental oxygen at night as well. Once the patient is euvolemic, perform walking oximetry study to evaluate for home-going supplemental oxygen need. The patient undoubtedly needs to follow-up in the pulmonary medicine clinic so that baseline pulmonary function studies can be obtained. We will follow-up on the remainder of his secondary pulmonary hypertension workup when he is seen in the pulmonary medicine clinic. 2. Newly discovered pulmonary hypertension Most likely the consequence of chronic hypoxemia and underlying lung disease. The patient will need to have pulmonary function studies completed once he is discharged from the hospital. He also needs to be assessed for home-going supplemental oxygen need. 3. Acute kidney injury Improved. Likely secondary to overdiuresis in his first 24 hours. Continue diuresis as tolerated by renal function. 4. Hypokalemia Additional electrolyte repletion as indicated. Recheck levels in the morning. 5. Long-standing tobacco dependency Agree with continuing nicotine replacement therapy while admitted to the hospital. I personally spoke to the patient regarding the deleterious effects of ongoing tobacco use, including modalities which could be utilized to achieve a smoke free lifestyle. This note was generated with [employer] dictation software. It may contain incorrect words, spelling, and punctuation that were not noted in checking the note before signing. Code Visit Inpatient E&M: 01603 Subs Hosp L2
--- NOTE | 2018-08-29 07:27 | PN_ITS ---
Patient Problems: Active and Suspected Problems CHF (congestive heart failure) (Acute) Subjective: The patient was seen and examined at the bedside this morning. Events from the last 24 hours have been reviewed. The patient is currently afebrile, hemodynamically stable and maintaining appropriate oxygen saturations on 4 L/min via nasal cannula. The patient was documented to be overall net -3.4 L yesterday. He is now overall net -13.4 L for the admission. While the patient does report subjective improvement in his breathing quality this morning, he continues to have lower extremity edema and a 4 L/min resting supplemental oxygen requirement. Objective: The patient's most recent lab work, culture data and imaging studies have all been personally reviewed. CTA chest revealed no evidence for pulmonary embolism. Upper lobe predominant emphysematous changes were noted along with evidence of bilateral pleural effusions and associated atelectasis. Surface echocardiogram obtained August 27 revealed evidence of stage I diastolic dysfunction with an ejection fraction of 65%. The patient had evidence of severe dilation of the RV with moderate to severe global RV systolic dysfunction and a right ventricular systolic pressure estimated to be 65 mmHg. Sputum Gram stain appears to be normal respiratory jay. Autoimmune and vasculitis panel is currently in process. VQ scan revealed low probability for PE. - Physical Exam General: Alert, Oriented x3, Cooperative, No apparent distress HEENT: Atraumatic, PERRLA, Normocephalic Oral: No Gingival or Mucosal Lesions/ Ulcerations Neck: Supple, No Nodes, Trachea Midline Lungs: No rhonchi, No rales, Diminished, Wheezes Cardiovascular: Regular rate, Regular Rhythm, Normal S1, Normal S2, No murmurs Abdomen: Bowel Sounds Present, Soft, Non Tender Extremities: No clubbing, No cyanosis, - - Continued bilateral lower extremity pitting edema Skin: No breakdown Musculoskeletal: No Tenderness to Palpation of Joints or Extremities Lymphatic: No Cervical, Supraclavicular, or Inguinal Adenopathy Neurological: Cranial nerves II-XII grossly intact, Neuro grossly intact Psych/Mental Status: Alert and oriented to time, place, person, mood and affect Vital Signs Temp Pulse Resp BP Pulse Ox 37.3 C 89 18 110/61 94 08/29/18 04:20 08/29/18 04:20 08/29/18 04:20 08/29/18 04:20 08/29/18 04:20 Oxygen Flow Rate (L/min) 4 Oxygen Delivery Method Nasal Cannula Weight: 163 lb 5.8 oz Body Mass Index (BMI) 26.2 Intake and Output for Last 24 Hours 08/27/18 08/28/18 08/29/18 23:59 23:59 23:59 Intake Total 1580 / 1580 1309 / 1309 Output Total 6150 / 6150 4750 / 4750 325 / 325 Balance -4570 / -4570 -3441 / -3441 -325 / -325 Microbiology Past 72 Hours 08/27/18 13:15 Gram Stain - Final Sputum, Expectorated/Coughed Respiratory Culture - Preliminary Appears to be normal respiratory jay. Further studies to follow. Laboratory Tests Past 24 Hrs 08/27/18 08/28/18 08/28/18 06:05 12:15 12:15 Diff Path Review Reviewed VIJAY Screen Pending c-ANCA Antibody Pending p-ANCA Antibody Pending MADISYN-1 Antibody Pending SS-A/Ro IgG Antibody Pending SS-B/La IgG Antibody Pending Sm (Lopez) Antibody Pending [employer] WAREHOUSE MANAGER Antibody Pending Scl-70 Scleroderma Ab Pending Double Strand DNA Ab Pending Centromere B Antibody Pending Clinical Impression(s) from Imaging Studies Chest X-Ray 08/26/18 14:21 IMPRESSION: Findings suggestive of mild degree of bibasilar infiltrates and/or atelectasis with blunting of both cost phrenic angles superimposed on mild degree of vascular congestion. Electronically Signed: Eyad Gonzalez, at 15:05 EST , Service support , Chest CTA 08/26/18 15:15 IMPRESSION: Bilateral pleural effusions left greater than right with underlying bibasilar atelectasis and scarring. Findings suggestive scarring in the lingular segment of the left upper lobe. Small amount of ascites. Small cyst in the left lobe of the liver. Electronically Signed: Eyad Gonzalez, at 16:01 EST , Service support , Lung Scan-VQ NM 08/28/18 10:12 IMPRESSION: 1. VERY LOW PROBABILITY FOR PULMONARY EMBOLUS (<10%) 99m Tc DTPA aerosol ventilation / 99m Tc MAA pulmonary perfusion imaging examination, according to PIOPED II interpretive criteria with regard given to the presence of > 2 ventilation-perfusion matches without corresponding radiographic changes. (Sopayton et al, Radiology 246: 941, 2008 Tesfaye et al, J Nucl Med 49: 1741, 2008). 2. Central clumping of the aerosol may be secondary to obstructive airway mechanics and or clinical tachypnea. Electronically Signed: Serjio Sewell, DO at 13:16 EST Tel , Service support , Chest X-Ray 08/28/18 10:25 IMPRESSION: Slight improved aeration at the left lung base. Electronically Signed: Eyad Carlos, at 14:49 EST , Service support , Medical Necessity - Tobacco Use Smoking Status: Current every day smoker Tobacco Use: Cigarettes Assessment/Plan All Active Problems CHF (congestive heart failure) (Acute) RECOMMENDATIONS: 1. Continue attempts at volume optimization as tolerated by renal function. 2. Wean supplemental oxygen to maintain saturations at or above 90%. 3. Perform walking oximetry study prior to consideration for discharge from the hospital. I do anticipate a home-going oxygen need. 4. The patient will need to follow-up in the pulmonary medicine clinic within 2 weeks of his discharge from the hospital. IMPRESSIONS: 1. Acute hypoxic respiratory insufficiency secondary to decompensated right- sided heart failure/cor pulmonale The patient presented to the hospital with decompensated right-sided heart failure and evidence of newly discovered pulmonary hypertension. He has responded appropriately to IV diuretic therapy. Recommend continued volume optimization as tolerated by renal function. I strongly suspect that the abhishek ent's pulmonary hypertension is likely related to chronic hypoxemia and undiagnosed/untreated COPD (Group III). Given that his CTA revealed no evidence for acute PE, a VQ scan was obtained to evaluate for the presence of chronic thromboembolic disease. The VQ scan was negative. LFTs are within normal limits. Orders for VIJAY and ANCA are currently pending. Overnight oximetry did suggest that the patient will require supplemental oxygen at night as well. Once the patient is euvolemic, perform walking oximetry study to evaluate for home-going supplemental oxygen need. The patient undoubtedly needs to follow-up in the pulmonary medicine clinic so that baseline pulmonary function studies can be obtained. We will follow-up on the remainder of his secondary pulmonary hypertension workup when he is seen in the pulmonary medicine clinic. 2. Newly discovered pulmonary hypertension Most likely the consequence of chronic hypoxemia and underlying lung disease. The patient will need to have pulmonary function studies completed once he is discharged from the hospital. He also needs to be assessed for home-going supplemental oxygen need. 3. Acute kidney injury Improved. Likely secondary to overdiuresis in his first 24 hours. Continue diuresis as tolerated by renal function. 4. Hypokalemia Additional electrolyte repletion as indicated. Recheck levels in the morning. 5. Long-standing tobacco dependency Agree with continuing nicotine replacement therapy while admitted to the hospital. I personally spoke to the patient regarding the deleterious effects of ongoing tobacco use, including modalities which could be utilized to achieve a smoke free lifestyle. This note was generated with iLike dictation software. It may contain incorrect words, spelling, and punctuation that were not noted in checking the note before signing. Code Visit Inpatient E&M: 48751 Subs Hosp L2
[2018-08-29 07:44] LABS: Hemoglobin 16.8 g/dl (13.0-16.5); Mean Corp Hgb Conc 29.8 g/gl (32-36); Mean Corpuscular Hgb 33.4 pg (27.0-32.0); Mean Corpuscular Volume 111.9 fL (80-94); Mean Platelet Vol. 11.3 fl (6.2-12.0); Platelet Count 91 K/mm3 (150-450); RBC Distribution Width CV 15.9 % (11.6-14.6); RBC Distribution Width SD 65.4 fl (35.1-43.9); Red Blood Count 5.03 M/mm3 (4.6-6.2); White Blood Count 6.8 K/mm3 (4.4-11.0)
[2018-08-29 07:46] LABS: Hematocrit 56.3 % (40-54); Scan Indicated on CBC? Y/N YES- FLAGS NOTED
[2018-08-29] MEDS: predniSONE 20 MG Tablet 40 MG PO (08:37)
[2018-08-29] MEDS: Enoxaparin 40 MG/0.4 ML Syringe SC (09:33)
[2018-08-29] MEDS: Furosemide 40 MG Tablet PO (09:33)
--- NOTE | 2018-08-29 10:07 | PCM.DC ---
- Discharge Diagnoses Current Active Problems: Current Active and Chronic Problems CHF (congestive heart failure) (Acute) Polycythemia (Chronic) Tobacco dependence (Chronic) Bladder cancer (Chronic) History of urostomy (Chronic) You will use the following diet at home:: Fluid restricted (specify 2000 mls, 1500 mls) - 1500 Discharge Activity: Return to Normal Activity Allergies/Adverse Reactions: Allergies ciprofloxacin [From Cipro] Allergy (Verified 08/26/18 12:55) Rash Medications to take at Discharge Albuterol IH (ProAir) [Proair Hfa] 2 puff INHALATION Q4H PRN PRN #1 inhaler 08/29/18 Furosemide [Lasix] 40 mg PO DAILY #60 tab 08/29/18 Potassium Chloride [K-Dur] 20 meq PO BIDCM #30 tab 08/29/18 predniSONE tablet 40 mg PO DAILY@0800 #6 tab 08/29/18 The following prescriptions were given: Albuterol IH (ProAir) [Proair Hfa] 2 puff INHALATION Q4H PRN PRN #1 inhaler PRN Reason: Dyspnea/Wheezing/Sob Furosemide [Lasix] 40 mg PO DAILY #60 tab Potassium Chloride [K-Dur] 20 meq PO BIDCM #30 tab predniSONE tablet 40 mg PO DAILY@0800 #6 tab Primary Care Physician: Romain Manzo III, MD [Primary Care Provider] - Please follow up with your Primary Care Physician in: in 5-7 days Test Results: Test results from this visit will be discussed in further detail at your follow-up appointment, if applicable. Please Follow Up With: Nader Mcneil DO When: 2 weeks Proposed Discharge Date: 08/29/18
--- NOTE | 2018-08-29 10:11 | DCINST_ITS ---
- Discharge Diagnoses Current Active Problems: Current Active and Chronic Problems CHF (congestive heart failure) (Acute) Polycythemia (Chronic) Tobacco dependence (Chronic) Bladder cancer (Chronic) History of urostomy (Chronic) You will use the following diet at home:: Fluid restricted (specify 2000 mls, 1500 mls) - 1500 Discharge Activity: Return to Normal Activity Allergies/Adverse Reactions: Allergies ciprofloxacin [From Cipro] Allergy (Verified 08/26/18 12:55) Rash Medications to take at Discharge Albuterol IH (ProAir) [Proair Hfa] 2 puff INHALATION Q4H PRN PRN #1 inhaler 08/29/18 Furosemide [Lasix] 40 mg PO DAILY #60 tab 08/29/18 Potassium Chloride [K-Dur] 20 meq PO BIDCM #30 tab 08/29/18 predniSONE tablet 40 mg PO DAILY@0800 #6 tab 08/29/18 The following prescriptions were given: Albuterol IH (ProAir) [Proair Hfa] 2 puff INHALATION Q4H PRN PRN #1 inhaler PRN Reason: Dyspnea/Wheezing/Sob Furosemide [Lasix] 40 mg PO DAILY #60 tab Potassium Chloride [K-Dur] 20 meq PO BIDCM #30 tab predniSONE tablet 40 mg PO DAILY@0800 #6 tab Primary Care Physician: Romain Manzo III, MD [Primary Care Provider] - Please follow up with your Primary Care Physician in: in 5-7 days Test Results: Test results from this visit will be discussed in further detail at your follow- up appointment, if applicable. Please Follow Up With: Nader Mcneil DO When: 2 weeks Proposed Discharge Date: 08/29/18
--- NOTE | 2018-08-29 10:11 | PCM.DC.SUM ---
Discharge Date and Diagnosis - Problem List Patient Problems: Active and Suspected Problems CHF (congestive heart failure) (Acute) Date of Admission: 08/26/18 Date of Discharge: 08/29/18 - Primary Discharge Diagnosis Active and Suspected Problems CHF (congestive heart failure) (Acute) - Secondary Discharge Diagnosis Chronic Problems Polycythemia (Chronic) Tobacco dependence (Chronic) Bladder cancer (Chronic) History of urostomy (Chronic) Hospital Course and Treatment Imaging Results: Clinical Impression(s) from Imaging Studies Chest X-Ray 08/26/18 14:21 IMPRESSION: Findings suggestive of mild degree of bibasilar infiltrates and/or atelectasis with blunting of both cost phrenic angles superimposed on mild degree of vascular congestion. Electronically Signed: Eyad Carlos, at 15:05 EST , Service support , Chest CTA 08/26/18 15:15 IMPRESSION: Bilateral pleural effusions left greater than right with underlying bibasilar atelectasis and scarring. Findings suggestive scarring in the lingular segment of the left upper lobe. Small amount of ascites. Small cyst in the left lobe of the liver. Electronically Signed: Eyad Carlos, at 16:01 EST , Service support , Lung Scan-VQ NM 08/28/18 10:12 IMPRESSION: 1. VERY LOW PROBABILITY FOR PULMONARY EMBOLUS (<10%) 99m Tc DTPA aerosol ventilation / 99m Tc MAA pulmonary perfusion imaging examination, according to PIOPED II interpretive criteria with regard given to the presence of > 2 ventilation-perfusion matches without corresponding radiographic changes. (Sotsman et al, Radiology 246: 941, 2008 Sotsman et al, J Nucl Med 49: 1741, 2008). 2. Central clumping of the aerosol may be secondary to obstructive airway mechanics and or clinical tachypnea. Electronically Signed: Serjio Sewell DO at 13:16 EST Tel , Service support , Chest X-Ray 08/28/18 10:25 IMPRESSION: Slight improved aeration at the left lung base. Electronically Signed: Eyad Gonzalez, at 14:49 EST , Service support , Summary of Care Provided: Patient is a 67-year-old gentleman presented with exertional dyspnea with bilateral lower extremity edema 1. Acute diastolic (heart failure with preserved ejection fraction) congestive heart failure: Patient has been admitted to a monitored bed serial cardiac enzymes ordered as part of patient evaluation. Also did obtain 2D echo for EF assessment. Patient was placed on fluid restriction, strict input and output, low-sodium diet and daily weights monitoring. His creatinine did bump from 1 to 1.3.4. His hemoglobin level down to 16.5 as of 08/28/2018. Lasix dose subsequently adjusted. Echo demonstrated ejection fraction of 65%, stage I diastolic dysfunction with severely dilated right ventricle and right ventricular systolic pressure of 65 mmHg consistent with severe pulmonary hypertension. 2. Acute hypoxic respiratory insufficiency secondary to severe pulmonary hypertension as well as patient congestive heart failure. Patient was assessed for home oxygen he did qualify patient will require portability since his mobile both at home as well as in the community. 3. Bilateral pleural effusion secondary to above 4. Severe pulmonary hypertension with RVSP of 65 mmHg attributed to suspected chronic lung disease from years of smoking. Consult placed to pulmonary medicine Dr. Mcneil 5. Polycythemia do suspect polycythemia as a result of chronic tobacco use. An echo has been ordered with a view to assess patient and arterial pressures. Echo demonstrated stage I diastolic dysfunction with severely dilated right ventricle and right ventricular systolic pressure of 65 mmHg consistent with severe pulmonary hypertension. 6. History of bladder CA status post resection currently in remission patient had a subsequent urostomy created 7. Frequent PVCs did request a magnesium level in addition to echo 8. Suspected COPD from prolonged tobacco use patient had some bronchospasm on admission placed on aerosol treatment 9. DVT prophylaxis SC Lovenox 10. Tobacco dependence counseled on cessation, offered nicotine patch for tobacco cravings Patient Problems: Active and Suspected Problems CHF (congestive heart failure) (Acute) Objective: GENERAL: cooperative HEENT: Atraumatic; moist oral mucosa EYES; Anicteric, Normal Conjunctiva NECK; supple, normal thyroid, distended JVD. RESPIRATORY: Diminished to auscultation bilaterally, CARDIOVASCULAR: Regular S1 S2, no audible murmurs GI: soft, non-tender, normoactive bowel sounds, : No Renal angle tenderness; EXTREMITIES: trace pedal edema, MUSCULOSKELETAL: No Joint Tenderness; NEURO: Awake; no lateralizing signs. SKIN: No Rash PSYCH; Normal affect - Physical Exam Vital Signs Temp Pulse Resp BP Pulse Ox 98 F 87 17 116/77 93 08/29/18 09:29 08/29/18 09:29 08/29/18 09:29 08/29/18 09:29 08/29/18 09:29 Oxygen Flow Rate (L/min) 4 Oxygen Delivery Method Nasal Cannula Weight: 74.1 kg Body Mass Index (BMI) 26.2 Intake and Output for Last 24 Hours 08/27/18 08/28/18 08/29/18 23:59 23:59 23:59 Intake Total 1580 / 1580 1309 / 1309 Output Total 6150 / 6150 4750 / 4750 325 / 325 Balance -4570 / -4570 -3441 / -3441 -325 / -325 Microbiology Past 72 Hours 08/27/18 13:15 Gram Stain - Final Sputum, Expectorated/Coughed Respiratory Culture - Preliminary Appears to be normal respiratory jay. Further studies to follow. Laboratory Tests Past 24 Hrs 08/28/18 08/28/18 08/29/18 12:15 12:15 06:57 WBC RBC Hgb Hct MCV MCH MCHC RDW RDW Differential Plt Count MPV Differential Comment Sodium Pending Potassium Pending Chloride Pending Carbon Dioxide Pending Anion Gap Pending BUN Pending Creatinine Pending Est GFR (MDRD) Af Amer Pending Est GFR (MDRD) Non-Af Pending BUN/Creatinine Ratio Pending Glucose Pending Calcium Pending Magnesium Pending VIJAY Screen Pending c-ANCA Antibody Pending p-ANCA Antibody Pending MADISYN-1 Antibody Pending SS-A/Ro IgG Antibody Pending SS-B/La IgG Antibody Pending Sm (Lopez) Antibody Pending SOCIAL SERVICE COORDINATOR Antibody Pending Scl-70 Scleroderma Ab Pending Double Strand DNA Ab Pending Centromere B Antibody Pending 08/29/18 06:57 WBC 6.8 RBC 5.03 Hgb 16.8 H Hct 56.3 H MCV 111.9 H MCH 33.4 H MCHC 29.8 L RDW 15.9 H RDW Differential 65.4 H Plt Count 91 L MPV 11.3 Differential Comment Sodium Potassium Chloride Carbon Dioxide Anion Gap BUN Creatinine Est GFR (MDRD) Af Amer Est GFR (MDRD) Non-Af BUN/Creatinine Ratio Glucose Calcium Magnesium VIJAY Screen c-ANCA Antibody p-ANCA Antibody MADISYN-1 Antibody SS-A/Ro IgG Antibody SS-B/La IgG Antibody Sm (Lopez) Antibody SOCIAL SERVICE COORDINATOR Antibody Scl-70 Scleroderma Ab Double Strand DNA Ab Centromere B Antibody Discharge Diet: 8 Cup Fluid Restriciton Discharge Activity: Return to Normal Activity Home Medications: Medications to take at Discharge Albuterol IH (ProAir) [Proair Hfa] 2 puff INHALATION Q4H PRN PRN #1 inhaler 08/29/18 Furosemide [Lasix] 40 mg PO DAILY #60 tab 08/29/18 Potassium Chloride [K-Dur] 20 meq PO BIDCM #30 tab 08/29/18 predniSONE tablet 40 mg PO DAILY@0800 #6 tab 08/29/18 Following Prescrptions Were Given to Patient: Albuterol IH (ProAir) [Proair Hfa] 2 puff INHALATION Q4H PRN PRN #1 inhaler PRN Reason: Dyspnea/Wheezing/Sob Furosemide [Lasix] 40 mg PO DAILY #60 tab Potassium Chloride [K-Dur] 20 meq PO BIDCM #30 tab predniSONE tablet 40 mg PO DAILY@0800 #6 tab Primary Care Physician: Romain Manzo III, MD [Primary Care Provider] - Please follow up with your Primary Care Physician in: in 5-7 days Please Follow Up With: Nader Mcneil DO When: 2 weeks Medical Necessity - Tobacco Use Smoking Status: Current every day smoker Tobacco Use: Cigarettes Meaningful Use Info Meaningful Use Diagnoses (Choose all that apply): CHF - CHF MARIA DEL ROSARIO/ARB ordered at discharge?: No Reason MARIA DEL ROSARIO/ARB not ordered?: Worsening renal disease Documented LVEF (%): 65 Code Visit Inpatient E&M: 37066 Disch Hosp
--- NOTE | 2018-08-29 10:15 | DS.PCM_ITS ---
Discharge Date and Diagnosis - Problem List Patient Problems: Active and Suspected Problems CHF (congestive heart failure) (Acute) Date of Admission: 08/26/18 Date of Discharge: 08/29/18 - Primary Discharge Diagnosis Active and Suspected Problems CHF (congestive heart failure) (Acute) - Secondary Discharge Diagnosis Chronic Problems Polycythemia (Chronic) Tobacco dependence (Chronic) Bladder cancer (Chronic) History of urostomy (Chronic) Hospital Course and Treatment Imaging Results: Clinical Impression(s) from Imaging Studies Chest X-Ray 08/26/18 14:21 IMPRESSION: Findings suggestive of mild degree of bibasilar infiltrates and/or atelectasis with blunting of both cost phrenic angles superimposed on mild degree of vascular congestion. Electronically Signed: Eyad Carlos, at 15:05 EST , Service support , Chest CTA 08/26/18 15:15 IMPRESSION: Bilateral pleural effusions left greater than right with underlying bibasilar atelectasis and scarring. Findings suggestive scarring in the lingular segment of the left upper lobe. Small amount of ascites. Small cyst in the left lobe of the liver. Electronically Signed: Eyad Carlos, at 16:01 EST , Service support , Lung Scan-VQ NM 08/28/18 10:12 IMPRESSION: 1. VERY LOW PROBABILITY FOR PULMONARY EMBOLUS (<10%) 99m Tc DTPA aerosol ventilation / 99m Tc MAA pulmonary perfusion imaging examination, according to PIOPED II interpretive criteria with regard given to the presence of > 2 ventilation-perfusion matches without corresponding radiographic changes. (Sotsman et al, Radiology 246: 941, 2008 Sotsman et al, J Nucl Med 49: 1741, 2008). 2. Central clumping of the aerosol may be secondary to obstructive airway mechanics and or clinical tachypnea. Electronically Signed: Serjio Sewell DO at 13:16 EST Tel , Service support , Chest X-Ray 08/28/18 10:25 IMPRESSION: Slight improved aeration at the left lung base. Electronically Signed: Eyad Gonzalez, at 14:49 EST , Service support , Summary of Care Provided: Patient is a 67-year-old gentleman presented with exertional dyspnea with bilateral lower extremity edema 1. Acute diastolic (heart failure with preserved ejection fraction) congestive heart failure: Patient has been admitted to a monitored bed serial cardiac enzymes ordered as part of patient evaluation. Also did obtain 2D echo for EF assessment. Patient was placed on fluid restriction, strict input and output, low-sodium diet and daily weights monitoring. His creatinine did bump from 1 to 1.3.4. His hemoglobin level down to 16.5 as of 08/28/2018. Lasix dose subsequently adjusted. Echo demonstrated ejection fraction of 65%, stage I diastolic dysfunction with severely dilated right ventricle and right ventricular systolic pressure of 65 mmHg consistent with severe pulmonary hypertension. 2. Acute hypoxic respiratory insufficiency secondary to severe pulmonary hypertension as well as patient congestive heart failure. Patient was assessed for home oxygen he did qualify patient will require portability since his mobile both at home as well as in the community. 3. Bilateral pleural effusion secondary to above 4. Severe pulmonary hypertension with RVSP of 65 mmHg attributed to suspected chronic lung disease from years of smoking. Consult placed to pulmonary medicine Dr. Mcneil 5. Polycythemia do suspect polycythemia as a result of chronic tobacco use. An echo has been ordered with a view to assess patient and arterial pressures. Echo demonstrated stage I diastolic dysfunction with severely dilated right ventricle and right ventricular systolic pressure of 65 mmHg consistent with severe pulmonary hypertension. 6. History of bladder CA status post resection currently in remission patient had a subsequent urostomy created 7. Frequent PVCs did request a magnesium level in addition to echo 8. Suspected COPD from prolonged tobacco use patient had some bronchospasm on admission placed on aerosol treatment 9. DVT prophylaxis SC Lovenox 10. Tobacco dependence counseled on cessation, offered nicotine patch for tobacco cravings Patient Problems: Active and Suspected Problems CHF (congestive heart failure) (Acute) Objective: GENERAL: cooperative HEENT: Atraumatic; moist oral mucosa EYES; Anicteric, Normal Conjunctiva NECK; supple, normal thyroid, distended JVD. RESPIRATORY: Diminished to auscultation bilaterally, CARDIOVASCULAR: Regular S1 S2, no audible murmurs GI: soft, non-tender, normoactive bowel sounds, : No Renal angle tenderness; EXTREMITIES: trace pedal edema, MUSCULOSKELETAL: No Joint Tenderness; NEURO: Awake; no lateralizing signs. SKIN: No Rash PSYCH; Normal affect - Physical Exam Vital Signs Temp Pulse Resp BP Pulse Ox 98 F 87 17 116/77 93 08/29/18 09:29 08/29/18 09:29 08/29/18 09:29 08/29/18 09:29 08/29/18 09:29 Oxygen Flow Rate (L/min) 4 Oxygen Delivery Method Nasal Cannula Weight: 74.1 kg Body Mass Index (BMI) 26.2 Intake and Output for Last 24 Hours 08/27/18 08/28/18 08/29/18 23:59 23:59 23:59 Intake Total 1580 / 1580 1309 / 1309 Output Total 6150 / 6150 4750 / 4750 325 / 325 Balance -4570 / -4570 -3441 / -3441 -325 / -325 Microbiology Past 72 Hours 08/27/18 13:15 Gram Stain - Final Sputum, Expectorated/Coughed Respiratory Culture - Preliminary Appears to be normal respiratory jay. Further studies to follow. Laboratory Tests Past 24 Hrs 08/28/18 08/28/18 08/29/18 12:15 12:15 06:57 WBC RBC Hgb Hct MCV MCH MCHC RDW RDW Differential Plt Count MPV Differential Comment Sodium Pending Potassium Pending Chloride Pending Carbon Dioxide Pending Anion Gap Pending BUN Pending Creatinine Pending Est GFR (MDRD) Af Amer Pending Est GFR (MDRD) Non-Af Pending BUN/Creatinine Ratio Pending Glucose Pending Calcium Pending Magnesium Pending VIJAY Screen Pending c-ANCA Antibody Pending p-ANCA Antibody Pending MADISYN-1 Antibody Pending SS-A/Ro IgG Antibody Pending SS-B/La IgG Antibody Pending Sm (Lopez) Antibody Pending ASSISTANT EXECUTIVE HOUSEKEEPER Antibody Pending Scl-70 Scleroderma Ab Pending Double Strand DNA Ab Pending Centromere B Antibody Pending 08/29/18 06:57 WBC 6.8 RBC 5.03 Hgb 16.8 H Hct 56.3 H MCV 111.9 H MCH 33.4 H MCHC 29.8 L RDW 15.9 H RDW Differential 65.4 H Plt Count 91 L MPV 11.3 Differential Comment Sodium Potassium Chloride Carbon Dioxide Anion Gap BUN Creatinine Est GFR (MDRD) Af Amer Est GFR (MDRD) Non-Af BUN/Creatinine Ratio Glucose Calcium Magnesium VIJAY Screen c-ANCA Antibody p-ANCA Antibody MADISYN-1 Antibody SS-A/Ro IgG Antibody SS-B/La IgG Antibody Sm (Lopez) Antibody ASSISTANT EXECUTIVE HOUSEKEEPER Antibody Scl-70 Scleroderma Ab Double Strand DNA Ab Centromere B Antibody Discharge Diet: 8 Cup Fluid Restriciton Discharge Activity: Return to Normal Activity Home Medications: Medications to take at Discharge Albuterol IH (ProAir) [Proair Hfa] 2 puff INHALATION Q4H PRN PRN #1 inhaler 08/29/18 Furosemide [Lasix] 40 mg PO DAILY #60 tab 08/29/18 Potassium Chloride [K-Dur] 20 meq PO BIDCM #30 tab 08/29/18 predniSONE tablet 40 mg PO DAILY@0800 #6 tab 08/29/18 Following Prescrptions Were Given to Patient: Albuterol IH (ProAir) [Proair Hfa] 2 puff INHALATION Q4H PRN PRN #1 inhaler PRN Reason: Dyspnea/Wheezing/Sob Furosemide [Lasix] 40 mg PO DAILY #60 tab Potassium Chloride [K-Dur] 20 meq PO BIDCM #30 tab predniSONE tablet 40 mg PO DAILY@0800 #6 tab Primary Care Physician: Romain Manzo III, MD [Primary Care Provider] - Please follow up with your Primary Care Physician in: in 5-7 days Please Follow Up With: Nader Mcneil DO When: 2 weeks Medical Necessity - Tobacco Use Smoking Status: Current every day smoker Tobacco Use: Cigarettes Meaningful Use Info Meaningful Use Diagnoses (Choose all that apply): CHF - CHF MARIA DEL ROSARIO/ARB ordered at discharge?: No Reason MARIA DEL ROSARIO/ARB not ordered?: Worsening renal disease Documented LVEF (%): 65 Code Visit Inpatient E&M: 70593 Disch Hosp
--- NOTE | 2018-08-29 10:20 | CASEMGMT ---
This RN CM to room to speak with pt regarding possible home oxygen and pt states no preference for DME company at this time. Pt states only has MCR A/B coverage and states has no Rx coverage but was not on any meds in the past. Advised pt that this RN CM would f/u with Rx pricing prior to discharge, pt voices understanding and voices no further questions/concerns/needs at this time. Dena AUGUSTINE aware of need for home oxygen testing at this time. Miguel Ángel AUGUSTINE CM
[2018-08-29 11:06] LABS: Anion Gap 9 (5-15); BUN 28 mg/dL (7-18); Calcium,Total 7.4 mg/dL (8.5-10.1); Chloride 93 mmol/L (98-107); Creatinine, Serum 1.12 mg/dL (0.70-1.30); EST Glomerular Filtration Rate 69 mL/min (>60); Est Glom Filt Rate - Afr Amer 84 mL/min (>60); Estimated Creatinine Clearance 67.08 ml/min; Glucose 89 mg/dL (74-106); Magnesium 1.7 mg/dL (1.6-2.6); Potassium 3.2 mmol/L (3.5-5.1); Sodium Level 144 mmol/L (136-145)
--- NOTE | 2018-08-29 11:49 | CASEMGMT ---
Addendum entered by Sarah Valdez 08/29/18 13:52: Referral faxed to Cynthia and call to Alicja to notify of order, voices understanding. This RN CM to room to update pt and pt's sister is at bedside. Pt aware of chamorro of scripts and states will be able to cover those without a problem at this time. Pt/sister inquiring about diet, fluid restriction at this time. Dietary aware and she states she will go in and speak with pt prior to discharge. Miguel Ángel AUGUSTINE CM Original Note: This RN CM still awaiting home oxygen testing so that referral can be faxed for home oxygen. Miguel Ángel AUGUSTINE CM
--- NOTE | 2018-08-29 14:08 | CASEMGMT ---
YENI spoke with patient and his sister regarding Medicaid. Patient does not qualify for Medicaid or help with Medicare Savings Programs. However, he could possibly qualify for help with Medicare D. SW gave them that information and let them know they can go to Social Security office and complete it or complete it online. They thanked YENI for the assistance. Kayce CEDILLO
--- NOTE | 2018-08-29 14:37 | CASEMGMT ---
Addendum entered by Sarah Valdez 08/29/18 15:34: This DAVIDE ROMAN placed call to Alicja at [facility] [place] and she states that pt's MCR B did go through at this time and her bulk delivery driver is no way over to deliver tank at this time. Miguel Ángel AUGUSTINE CM Original Note: Call from Alicja at [facility] [place] stating that pt's MCR B is coming back invalid. Copy of card faxed to [facility] [place] [facility] at this time per her request. Miguel Ángel AUGUSTINE CM
[2018-08-29 16:08] LABS: Cytoplasmic Ab (C-ANCA) <1:20 titer (Neg:<1:20)
[2018-08-31 10:06] LABS: ANTINUCLEAR ANTIBODIES DIRECT Negative (Negative); Perinuclear Ab (P-ANCA) <1:20 titer (Neg:<1:20)
--- NOTE | 2018-09-01 16:21 | CASEMGMT ---
RN ABEL Discharge Follow-up Phone Call: EN: 11 Strata: 3 Call Date: 09/01/18 Discharge Date: 08/29/18 Time of Call: 1620 Duration: 1 min Admitting Diagnosis: CHF RN ABEL attempted to complete follow-up phone call after recent hospitalization. No answer, voice message left with return contact information.
== END 2018-08-29 16:53 | disposition home or self-care (01) | DRG 292 ==
LOC: ED 14:18 → PCU 16:35
PROVIDERS: Internal Medicine Critical Care Medicine; Admitting Provider Internal Medicine; Emergency Provider Emergency Medicine; Family Provider Family Medicine; PCP Family Medicine; Referring Provider Internal Medicine; Visit Provider Internal Medicine
DX: I50.31 Acute diastolic (congestive) heart failure (principal); J91.8 Pleural effusion in other conditions classified elsewhere; N17.9 Acute kidney failure, unspecified; J96.11 Chronic respiratory failure with hypoxia; D75.1 Secondary polycythemia; I49.3 Ventricular premature depolarization; F17.210 Nicotine dependence, cigarettes, uncomplicated; I27.20 Pulmonary hypertension, unspecified; E87.6 Hypokalemia; I27.81 Cor pulmonale (chronic); J98.01 Acute bronchospasm; Z93.6 Other artificial openings of urinary tract status; Z90.6 Acquired absence of other parts of urinary tract; Z85.51 Personal history of malignant neoplasm of bladder; J44.9 Chronic obstructive pulmonary disease, unspecified
CPT/HCPCS: 36415; 71046; 71275; 78582; 80048; 80053; 83605; 83690; 83735; 83880; 84443; 84484; 85025; 85027; 85610; 85730; 86038; 86225; 86235; 86256; 87070; 87205; 93005; 93306; 94640; 97162; 97165; 97530; 97535; 97802; 97803; 99283; 99406; A9540; A9567; Q9967; A4216; J1940

== ENCOUNTER 2018-09-05 10:26 | Emergency (ER) | payer MEDICARE, SELFPAY ==
[2018-08-26 17:34] VITALS: BMI 26.2
[2018-09-05 10:26] VITALS: PULSE 91; RESP 18; TEMP 36.3; O2SAT 91; BMI 22.3
--- NOTE | 2018-09-05 10:42 | EKG12_ITS ---
Test Reason : ABNORMAL LABS Blood Pressure : / mmHG Vent. Rate : 078 BPM Atrial Rate : 078 BPM P-R Int : 140 ms QRS Dur : 086 ms QT Int : 376 ms P-R-T Axes : 073 148 049 degrees QTc Int : 428 ms Normal sinus rhythm Biatrial enlargement Right axis deviation Pulmonary disease pattern Right ventricular hypertrophy Abnormal ECG Confirmed by LEE BROOKE, BENTLEY ([id number]), news editor MAR BEAUCHAMP ([id number]) on 09/09/2018 9:12:59 AM Referred By: BB Confirmed By:BENTLEY HOWARD MD
[2018-09-05 10:58] VITALS: RESP 23
[2018-09-05 11:13] LABS: Anion Gap 2 (5-15); BUN 44 mg/dL (7-18); BUN/Creat Ratio 45.4 RATIO (10-20); Calcium,Total 8.3 mg/dL (8.5-10.1); Chloride 96 mmol/L (98-107); Creatinine, Serum 0.97 mg/dL (0.70-1.30); EST Glomerular Filtration Rate 82 mL/min (>60); Est Glom Filt Rate - Afr Amer 99 mL/min (>60); Estimated Creatinine Clearance 75.86 ml/min; Glucose 96 mg/dL (74-106); Potassium 5.5 mmol/L (3.5-5.1); Sodium Level 136 mmol/L (136-145)
--- NOTE | 2018-09-05 11:16 | ED.DCSUM_ITS ---
History of Present Illness Chief Complaint: Abn Labs Detail of Chief Complaint: elevated potassium Informant: Patient Onset: Yesterday - from routine follow-up blood draw Quality: gen weak Location: all over, x couple days Current Severity: Mild Maximum Severity: Mild Worsened by: n/a Relieved by: n/a Associated Symptoms: no cp, sob. on Lasix for edema, which has significantly helped. Narrative: Patient recently in the hospital for peripheral edema, has been out for about a week and had a routine follow-up yesterday with some blood test that showed an elevated potassium that was discovered today, so he was referred to the emergency department. He states he was diagnosed with some degree of right- sided congestive heart failure, and he has some early COPD no other heart problems that he knows of. - Past Medical History (1) CHF (congestive heart failure) Status: Chronic (2) Bladder cancer Status: Chronic (3) History of urostomy Status: Chronic (4) Polycythemia Status: Chronic (5) Tobacco dependence Status: Chronic Past Medical History - Allergies and Home Meds Allergies/Adverse Reactions: Allergies ciprofloxacin [From Cipro] Allergy (Verified 09/05/18 10:55) Rash Primary Care Physician: Romain Manzo III, MD [Primary Care Provider] - Lives: Spouse/ Significant Other Smoking Status: Current every day smoker - Family History Maternal Family History: Reports: Heart Disease Paternal Family History: Reports: Heart Disease Review of Systems General: Reports: Malaise. Denies: Chills, Fever, Sweats Eyes: Denies: Visual changes - bilaterally, Diplopia ENT: Denies: Rhinorrhea, Sore throat Cardiovascular: Denies: Chest pain, Palpitations Respiratory: Reports: Dyspnea - Chronic, no worse, Cough - Chronic, no worse. Denies: Sputum, Dyspnea on exertion Gastrointestinal: Denies: Abdominal pain, Nausea, Vomiting, Diarrhea, Melena, Hematochezia Genitourinary: Reports: Frequency - Due to diuretic. Denies: Dysuria, Hematuria Musculoskeletal: Denies: Back pain, Extremity Pain Skin: Denies: Rash, Wounds Neurological: Denies: Headache, Weakness, Numbness Physical Exam Vital Signs/Narrative: Vital Signs Temp Pulse Resp Pulse Ox 09/05/18 10:58 23 H 09/05/18 10:26 97.4 F L 91 18 91 Inital Vital Signs reviewed: Yes General: Well nourished, Well developed, No Acute Distress - speaking in full sentences Head: Normocephalic, Atraumatic Eyes: Perrl, EOMI ENT: Moist mucous membranes, No rhinorrhea Neck: Supple, Nontender Cardiovascular: Regular rate, Regular rhythm, No murmurs, Normal S1, Normal S2. Negative for: Tachycardia Respiratory: No distress, CTA bilaterally, Chest nontender, Diminished - throughout Abdomen: Soft, Nontender, Nondistended, Normal bowel sounds Back: Nontender, Normal Inspection Extremities: Nontender, No edema. Negative for: Calf Tenderness Skin: Normal color, No rash Neurological: Alert, Oriented x3, Cranial nerves II-XII grossly intact, Normal Strength, Normal Sensation Psychological: Normal affect, Normal Mood Diagnostic/Tx/Re-eval Laboratory Tests 09/05/18 09/05/18 Range/Units 14:55 10:50 Sodium 136 (136-145) mmol/L Potassium 4.5 5.5 H (3.5-5.1) mmol/L Chloride 96 L (98-107) mmol/L Carbon Dioxide 38.0 H (21.0-32.0) mmol/L Anion Gap 2 L (5-15) BUN 44 H (7-18) mg/dL Creatinine 0.97 (0.70-1.30) mg/dL Estim Creat Clear Calc 75.86 ml/min Est GFR (MDRD) Af Amer 99 (>60) mL/min Est GFR (MDRD) Non-Af 82 (>60) mL/min BUN/Creatinine Ratio 45.4 H (10-20) RATIO Glucose 96 (74-106) mg/dL Calcium 8.3 L (8.5-10.1) mg/dL - Rhythm Strip Rhythm Strip: Sinus Rhythm Rate: 78 Ectopy: None - EKG Initial EKG Interpretation: Sinus Rhythm, No Acute Injury Pattern, - - RAD. FREDERICK. no peaked T's or other signs of hyperkalemia. - Medical Decision Making Although the patient did not disclose it with his other medications, he takes potassium, he thinks 40 mEq twice daily. Since he is on Lasix and has high potassium, this is probably the reason why. We gave him a dose of Lasix in addition to some IV fluids since he was prerenal and I was giving him the Lasix in order to lower his potassium, not for his diuretic effects, in addition to a dose of Kayexalate. A little later we repeated his potassium and it is down from 5.5-4.5. He is stable to be discharged home, continuing his Lasix as prescribed, discontinuing his potassium for the next couple days, and after 3 or 4 days of discontinuing it, he may resume it once daily instead of twice and follow-up with his doctor for a recheck. He is comfortable with this plan. ED Disposition - Plan for ED Patient: Disposition: Home or Assisted Living Diagnosis: Acute hyperkalemia Instructions: ED Potassium Excess Referrals: Romain Manzo III, MD [Primary Care Provider] - (Next week, call for appointment) Additional Instructions: Do not take any potassium pills for the next 3 or 4 days. Then, resume taking once daily instead of twice. Take your other prescriptions as prescribed.
[2018-09-05 12:07] VITALS: BP 108/78; PULSE 91; RESP 20; O2SAT 92
[2018-09-05] MEDS: Sodium Polystyrene Sulfonate 15 GM/60 ML UDC 30 GM PO (12:08)
[2018-09-05] MEDS: Furosemide 20 MG/2 ML VIAL IV (12:08)
[2018-09-05 14:00] VITALS: BP 105/75; PULSE 84; RESP 20
[2018-09-05 15:11] LABS: Potassium 4.5 mmol/L (3.5-5.1)
[2018-09-05 17:10] VITALS: BP 106/77; PULSE 84; RESP 15; O2SAT 97
== END 2018-09-05 17:11 | disposition home or self-care (01) ==
PROVIDERS: Emergency Provider Emergency Medicine; Family Provider Family Medicine; PCP Family Medicine
DX: E87.5 Hyperkalemia (principal); F17.200 Nicotine dependence, unspecified, uncomplicated; I50.9 Heart failure, unspecified; Z85.51 Personal history of malignant neoplasm of bladder; Z79.51 Long term (current) use of inhaled steroids; Z79.899 Other long term (current) drug therapy
CPT/HCPCS: 36415; 80048; 84132; 93005; 96361; 96374; 99285; J7040; A4216; J1940

== ENCOUNTER → 2018-10-14 | Outpatient (CLI) | payer MEDICARE, SELFPAY ==
[2018-09-12 11:26] VITALS: BMI 22.3
--- NOTE | 2018-10-14 16:24 | PFTCOMP ---
COMPLETE PULMONARY FUNCTION TEST INTERPRETATION Brief HPI: Patient is a 67 year old male, currently under the care of Dr. Mcneil, who presents to [facility] for complete pulmonary function tests secondary to diagnosis of COPD. Respiratory therapist reports good effort and reproducible results. Interpretation: Forced expiration spirometry shows a moderately-severe large airways obstructive ventilatory defect with an FEV1 of 53% predicted. There is no significant bronchodilator response by strict ATS criteria. Spirograms are of good quality and plateau slowly, indicating slowly emptying areas of the lungs. The respiratory flow volume loop shows decreased expiratory flow rates at all lung volumes consistent with airway obstruction. Lung volumes by body plethysmography show a normal total lung capacity at 7.26 L, 107% predicted. All other lung volumes are within normal limits. Diffusion capacity by carbon monoxide is at the lower limit of normal at 63% predicted. The airway resistance is elevated. No previous pulmonary function tests were available for review. Impression: Irreversible moderately severe large airways obstructive ventilatory defect with a symmetric reduction diffusion capacity, consistent with patient's diagnosis of COPD.
== END | disposition home or self-care (01) ==
LOC: PSN 13:08
PROVIDERS: Family Provider Family Medicine; PCP Family Medicine; Referring Provider Nurse Practitioner Acute Care; Visit Provider Nurse Practitioner Acute Care
DX: J44.9 Chronic obstructive pulmonary disease, unspecified (principal)
CPT/HCPCS: 94060; 94726; 94729

== ENCOUNTER → 2018-10-16 | Outpatient (CLI) | payer MEDICARE, SELFPAY ==
[2018-09-12 11:26] VITALS: BMI 22.3
[2018-10-16 13:02] VITALS: PULSE 82; PULSE 84; PULSE 85; PULSE 90; PULSE 91; PULSE 92; PULSE 99; O2SAT 86; O2SAT 90; O2SAT 91; O2SAT 92; O2SAT 93
--- NOTE | 2018-10-16 13:07 | CPS ---
PATIENT HAS O2 AT HOME VIA [facility]ASCO SINCE DC FROM HOSPITAL. HE ARRIVED ON ROOM AIR FOR TESTING, RATES DYSPNEA AT 3 WHICH HE STATES IS NORMAL. AMBULATED FOR JUST SHY OF 2 MIN ON ROOM AIR AT WHICH TIME SPO2 86%. BREAK TAKEN AND NC APPLIED AT 2LPM FOR REMAINDER OF TESTING. PT USED A LEES FOR AMBULATION D/T WEAKNESS IN RIGHT LEG.
--- NOTE | 2018-10-16 14:56 | WT_ITS ---
PSN 6 Minute Walk Test - 6 Minute Walk Test 6 Minute Walk Test: 6 Minute Walk Test PSN:6-Minute Walk Test Start: 10/16/18 13:02 Freq: Status: Active Protocol: RESP.6MINW Document 10/16/18 13:02 [facility] (Rec: 10/16/18 13:12 [facility] [id number]) 6 Minute Walk Test Date Performed 10/16/18 Time Performed 12:30 Height 5 ft 11 in Weight: 68.946 kg Weight in Pounds 152.[address]: Mabel Peña Assistive device used: Cane Pre-test Oxygen Delivery Method Room Air Pulse Ox (%) 90 Pulse Rate (60-100 beats/min) 82 Dyspnea Talia Scale (0-10) 3 1st minute Oxygen Delivery Method Room Air Pulse Ox (%) 91 Pulse Rate (60-100 beats/min) 85 Dyspnea Talia Scale (0-10) 3 2nd minute Oxygen Delivery Method Room Air Pulse Ox (%) 86 Pulse Rate (60-100 beats/min) 99 Dyspnea Talia Scale (0-10) 3 Number of Rests Taken 1 3rd minute Oxygen Flow Rate (L/min) (L/min) 2 Oxygen Delivery Method Nasal Cannula Pulse Ox (%) 93 Pulse Rate (60-100 beats/min) 90 Dyspnea Talia Scale (0-10) 3 4th minute Oxygen Flow Rate (L/min) (L/min) 2 Oxygen Delivery Method Nasal Cannula Pulse Ox (%) 92 Pulse Rate (60-100 beats/min) 91 Dyspnea Talia Scale (0-10) 3 5th minute Oxygen Flow Rate (L/min) (L/min) 2 Oxygen Delivery Method Nasal Cannula Pulse Ox (%) 91 Pulse Rate (60-100 beats/min) 90 Dyspnea Talia Scale (0-10) 3 6th minute Oxygen Flow Rate (L/min) (L/min) 2 Oxygen Delivery Method Nasal Cannula Pulse Ox (%) 90 Pulse Rate (60-100 beats/min) 92 Dyspnea Talia Scale (0-10) 3 Post-test Oxygen Delivery Method Room Air Pulse Ox (%) 92 Pulse Rate (60-100 beats/min) 84 Dyspnea Talia Scale (0-10) 3 Full Laps Walked 14 Partial Lap, Number of Tiles Walked 32 Total Distance Walked (ft) 858 10/16/18 13:07 Cardiopulmonary Services by Hermelinda Dougherty PATIENT HAS O2 AT HOME VIA [facility]ASCO SINCE DC FROM HOSPITAL. HE ARRIVED ON ROOM AIR FOR TESTING, RATES DYSPNEA AT 3 WHICH HE STATES IS NORMAL. AMBULATED FOR JUST SHY OF 2 MIN ON ROOM AIR AT WHICH TIME SPO2 86%. BREAK TAKEN AND NC APPLIED AT 2LPM FOR REMAINDER OF TESTING. PT USED A LEES FOR AMBULATION D/T WEAKNESS IN RIGHT LEG. Initialized on 10/16/18 13:07 - END OF NOTE - Interpretation Interpretation: The patient was noted to be 96% on room air at rest. In the second minute of ambulation, patient desaturated to 86% was placed on 2 L nasal cannula and saturations improved to 93%. The patient was then able to finish ambulating a total of 858 feet over the course of 6 minutes with the assistance of a cane. These findings are consistent with a respiratory limitation exercise tolerance. - Recommendations Recommendations: No supplemental oxygen is indicated at rest, but patient should be using 2 L nasal cannula with any exertion.
== END | disposition home or self-care (01) ==
LOC: PSN 12:25
PROVIDERS: Family Provider Family Medicine; PCP Family Medicine; Referring Provider Nurse Practitioner Acute Care; Visit Provider Nurse Practitioner Acute Care
DX: J44.9 Chronic obstructive pulmonary disease, unspecified (principal)
CPT/HCPCS: 94618